=== PATIENT | male | born 1950 | race Caucasian/White ===

== ENCOUNTER → 2017-01-18 | Outpatient (REF) | payer MEDICARE, OTHER ==
[~2017-01-18] MED LIST: ASPIRIN EC
[2017-01-18 13:24] LABS: BASO % 0.6 % (0.0-1.0); EOS # 0.2 K/mm3 (0.0-0.50); EOS % 3.6 % (0.0-3.0); LARGE UNSTAINED CELL # 0.1 K/mm3 (0.0-0.4); LARGE UNSTAINED CELL % 1.8 % (0.0-4.0); LYMPH # 1.2 K/mm3 (1.5-4.5); LYMPH % 17.3 % (24.0-44.0); MEAN CORPUSCULAR HEMOGLOBIN 30.7 pg (27.0-33.0); MEAN CORPUSCULAR HGB CONC 33.6 g/dl (32.0-36.5); MEAN CORPUSCULAR VOLUME 91.4 fl (80.0-96.0); MONO # 0.4 K/mm3 (0.0-0.8); MONO % 6.2 % (0.0-5.0); NEUTROPHILS # 4.9 K/mm3 (1.8-7.7); NEUTROPHILS % 70.4 % (36.0-66.0); PLATELET COUNT, AUTOMATED 187 k/mm3 (150-450); RED CELL DISTRIBUTION WIDTH 13.3 % (11.5-14.5)
[2017-01-18 14:09] LABS: ALBUMIN 3.9 GM/DL (3.2-5.2); ALBUMIN/GLOBULIN RATIO 1.08 (1.00-1.93); BILIRUBIN,TOTAL 0.4 MG/DL (0.2-1.0); CALCIUM LEVEL 9.5 MG/DL (8.8-10.2); CREATININE FOR GFR 1.33 MG/DL (0.70-1.30); GLOMERULAR FILTRATION RATE 57.4 (>49); POTASSIUM SERUM 4.4 MEQ/L (3.5-5.1); TOTAL PROTEIN 7.5 GM/DL (6.4-8.2)
== END ==
LOC: M SFHCPLAZ 08:10
PROVIDERS: ATTEND Family Medicine
DX: E11.9 Type 2 diabetes mellitus without complications (principal); E78.2 Mixed hyperlipidemia

== ENCOUNTER → 2017-05-04 | Outpatient (CLI) | payer MEDICARE, OTHER ==
--- NOTE | 2017-05-04 11:01 | REP ---
PA and lateral chest: Comparisons are the portable chest dated 01/27/2015 and AP and lateral portable chest of 10/02/2005. There are sternotomy wires, unchanged from 01/27/2015, not present on 10/02/2005. There are no focal infiltrates. No pleural effusions. Cardiac size is normal. The yanelis, mediastinum, and bony thorax are unremarkable and unchanged. Impression: There are no acute cardiopulmonary findings. No focal infiltrate or effusion. Signed by Robles Schaefer MD 05/04/2017 10:52 A
== END ==
LOC: M WUC 10:35
PROVIDERS: ATTEND Family Medicine
DX: J06.9 Acute upper respiratory infection, unspecified (principal)
CPT/HCPCS: 36415; 71020; 80048; 85025; G0463

== ENCOUNTER → 2017-05-04 | Outpatient (REF) | payer MEDICARE, OTHER ==
[2017-05-04 11:29] LABS: BASO % 0.2 % (0.0-1.0); EOS % 0.1 % (0.0-3.0); LARGE UNSTAINED CELL # 0.1 K/mm3 (0.0-0.4); LARGE UNSTAINED CELL % 0.8 % (0.0-4.0); LYMPH # 0.7 K/mm3 (1.5-4.5); LYMPH % 6.9 % (24.0-44.0); MEAN CORPUSCULAR HEMOGLOBIN 31.9 pg (27.0-33.0); MEAN CORPUSCULAR HGB CONC 34.7 g/dl (32.0-36.5); MEAN CORPUSCULAR VOLUME 91.9 fl (80.0-96.0); MONO # 0.5 K/mm3 (0.0-0.8); MONO % 5.1 % (0.0-5.0); NEUTROPHILS # 7.8 K/mm3 (1.8-7.7); NEUTROPHILS % 86.9 % (36.0-66.0); PLATELET COUNT, AUTOMATED 154 k/mm3 (150-450)
[2017-05-04 11:36] LABS: CALCIUM LEVEL 8.9 MG/DL (8.8-10.2); CREATININE FOR GFR 1.47 MG/DL (0.70-1.30); GLOMERULAR FILTRATION RATE 51.2 (>49)
== END ==
LOC: M SFHCPLAZ 09:48
PROVIDERS: ATTEND Family Medicine
DX: J06.9 Acute upper respiratory infection, unspecified (principal)

== ENCOUNTER → 2017-05-16 | Outpatient (REF) | payer MEDICARE, OTHER ==
[2017-05-16 12:01] LABS: ALBUMIN 3.4 GM/DL (3.2-5.2); ALBUMIN/GLOBULIN RATIO 0.92 (1.00-1.93); ALKALINE PHOSPHATASE 53 U/L (45-117); ALT/SGPT 24 U/L (12-78); ANION GAP 7 MEQ/L (8-16); AST/SGOT 16 U/L (15-37); BILIRUBIN,TOTAL 0.4 MG/DL (0.2-1.0); BLOOD UREA NITROGEN 22 MG/DL (7-18); CALCIUM LEVEL 9.2 MG/DL (8.8-10.2); CARBON DIOXIDE LEVEL 27 MEQ/L (21-32); CHLORIDE LEVEL 105 MEQ/L (98-107); CREATININE FOR GFR 1.02 MG/DL (0.70-1.30); GLOMERULAR FILTRATION RATE > 60.0 (>49); GLUCOSE, FASTING 188 MG/DL (80-110); POTASSIUM SERUM 4.4 MEQ/L (3.5-5.1); SODIUM LEVEL 139 MEQ/L (136-145); TOTAL PROTEIN 7.1 GM/DL (6.4-8.2)
== END ==
LOC: M SFHCPLAZ 09:01
PROVIDERS: ATTEND Family Medicine
DX: N18.3 Chronic kidney disease, stage 3 (moderate) (principal); E11.8 Type 2 diabetes mellitus with unspecified complications; Z12.5 Encounter for screening for malignant neoplasm of prostate
CPT/HCPCS: 36415; 80053; 81001; 82043; 83036; 83970; 84681; G0103

== ENCOUNTER → 2017-06-19 | Outpatient (CLI) | payer MEDICARE, OTHER ==
[2017-06-19 09:18] LABS: ALBUMIN 3.5 GM/DL (3.2-5.2); ALBUMIN/GLOBULIN RATIO 1.03 (1.00-1.93); ALKALINE PHOSPHATASE 48 U/L (45-117); ALT/SGPT 21 U/L (12-78); ANION GAP 8 MEQ/L (8-16); AST/SGOT 15 U/L (15-37); BILIRUBIN,TOTAL 0.4 MG/DL (0.2-1.0); BLOOD UREA NITROGEN 16 MG/DL (7-18); CALCIUM LEVEL 8.8 MG/DL (8.8-10.2); CARBON DIOXIDE LEVEL 26 MEQ/L (21-32); CHLORIDE LEVEL 109 MEQ/L (98-107); CREATININE FOR GFR 0.93 MG/DL (0.70-1.30); GLOMERULAR FILTRATION RATE > 60.0 (>49); GLUCOSE, FASTING 179 MG/DL (80-110); POTASSIUM SERUM 4.2 MEQ/L (3.5-5.1); SODIUM LEVEL 143 MEQ/L (136-145); TOTAL PROTEIN 6.9 GM/DL (6.4-8.2)
[2017-06-19 10:47] LABS: MICROSCOPIC INDICATED? MAN YES (NO)
[2017-06-19 11:05] LABS: RBC, URINE NONE SEEN /hpf (0-3); WBC, URINE 0-1 /hpf (0-3)
[2017-06-19 11:06] LABS: BACTERIA, URINE NONE SEEN; HYALINE CAST, URINE NONE SEEN /lpf (0-1); MICROSCOPIC EXAM PERFORMED; SQUAMOUS EPITHELIAL CELL URINE NONE SEEN /hpf (SMALL AMT)
== END ==
LOC: M LAB 07:56
PROVIDERS: ATTEND Family Medicine
DX: N18.3 Chronic kidney disease, stage 3 (moderate) (principal); Z79.899 Other long term (current) drug therapy; Z12.5 Encounter for screening for malignant neoplasm of prostate
CPT/HCPCS: 36415; 80053; 81000; 82043; 82306; 83036; 83970; 84681; G0103

== ENCOUNTER → 2017-10-15 | Outpatient (CLI) | payer MEDICARE, OTHER ==
[2017-10-15 06:53] LABS: BASO # 0.1 10^3/uL (0.0-0.2); BASO % 0.7 % (0.0-1.0); EOS # 0.3 10^3/uL (0.0-0.50); EOS % 4.2 % (0.0-3.0); IMMATURE GRANULOCYTE % 0.3 % (0-0); LYMPH # 1.2 10^3/uL (1.5-4.5); LYMPH % 18.5 % (24.0-44.0); MEAN CORPUSCULAR HEMOGLOBIN 31.2 pg (27.0-33.0); MEAN CORPUSCULAR HGB CONC 34.3 g/dl (32.0-36.5); MEAN CORPUSCULAR VOLUME 90.8 fl (80.0-96.0); MONO # 0.6 10^3/uL (0.0-0.8); MONO % 8.5 % (0.0-5.0); NEUTROPHILS # 4.5 10^3/uL (1.8-7.7); NEUTROPHILS % 67.8 % (36.0-66.0); PLATELET COUNT, AUTOMATED 173 10^3/uL (150-450); RED CELL DISTRIBUTION WIDTH 12.6 % (11.5-14.5); WHITE BLOOD COUNT 6.7 10^3/uL (4.0-10.0)
[2017-10-15 07:26] LABS: ALBUMIN/GLOBULIN RATIO 1.08 (1.00-1.93); ALKALINE PHOSPHATASE 55 U/L (45-117); ALT/SGPT 26 U/L (12-78); ANION GAP 9 MEQ/L (8-16); AST/SGOT 18 U/L (7-37); BILIRUBIN,TOTAL 0.4 MG/DL (0.2-1.0); BLOOD UREA NITROGEN 16 MG/DL (7-18); CALCIUM LEVEL 9.3 MG/DL (8.8-10.2); CARBON DIOXIDE LEVEL 26 MEQ/L (21-32); CHLORIDE LEVEL 107 MEQ/L (98-107); CHOLESTEROL LEVEL 147 MG/DL (<200); CREATININE FOR GFR 1.01 MG/DL (0.70-1.30); FREE T4 0.78 NG/DL (0.76-1.46); GLOMERULAR FILTRATION RATE > 60.0 (>49); GLUCOSE, FASTING 173 MG/DL (80-110); POTASSIUM SERUM 4.5 MEQ/L (3.5-5.1); SODIUM LEVEL 142 MEQ/L (136-145); TOTAL PROTEIN 7.7 GM/DL (6.4-8.2); TRIGLYCERIDES LEVEL 244 MG/DL (<150)
== END ==
LOC: M LAB 06:33
PROVIDERS: ATTEND Family Medicine
DX: N18.3 Chronic kidney disease, stage 3 (moderate) (principal); E78.2 Mixed hyperlipidemia; E11.8 Type 2 diabetes mellitus with unspecified complications

== ENCOUNTER → 2018-03-01 | Outpatient (REF) | payer MEDICARE, OTHER ==
[2018-03-01 09:56] LABS: BASO % 0.4 % (0.0-1.0); EOS # 0.2 10^3/uL (0.0-0.50); EOS % 2.5 % (0.0-3.0); HEMATOCRIT 41.3 % (42.0-52.0); HEMOGLOBIN 14.5 g/dl (13.5-17.5); IMMATURE GRANULOCYTE % 0.3 % (0-3.0); LYMPH # 1.2 10^3/uL (1.5-4.5); LYMPH % 16.2 % (24.0-44.0); MEAN CORPUSCULAR HEMOGLOBIN 31.5 pg (27.0-33.0); MEAN CORPUSCULAR HGB CONC 35.1 g/dl (32.0-36.5); MEAN CORPUSCULAR VOLUME 89.6 fl (80.0-96.0); MONO # 0.6 10^3/uL (0.0-0.8); MONO % 8.4 % (0.0-5.0); NEUTROPHILS # 5.4 10^3/uL (1.8-7.7); NEUTROPHILS % 72.2 % (36.0-66.0); PLATELET COUNT, AUTOMATED 177 10^3/uL (150-450); RED BLOOD COUNT 4.61 10^6/uL (4.30-6.10); RED CELL DISTRIBUTION WIDTH 12.8 % (11.5-14.5); WHITE BLOOD COUNT 7.5 10^3/uL (4.0-10.0)
[2018-03-01 10:06] LABS: ALBUMIN 3.9 GM/DL (3.2-5.2); ALBUMIN/GLOBULIN RATIO 1.11 (1.00-1.93); ALKALINE PHOSPHATASE 56 U/L (45-117); ALT/SGPT 29 U/L (12-78); ANION GAP 6 MEQ/L (8-16); AST/SGOT 23 U/L (7-37); BILIRUBIN,TOTAL 0.4 MG/DL (0.2-1.0); BLOOD UREA NITROGEN 16 MG/DL (7-18); CALCIUM LEVEL 9.1 MG/DL (8.8-10.2); CARBON DIOXIDE LEVEL 29 MEQ/L (21-32); CHLORIDE LEVEL 103 MEQ/L (98-107); CREATININE FOR GFR 0.98 MG/DL (0.70-1.30); GLOMERULAR FILTRATION RATE > 60.0 (>49); GLUCOSE, FASTING 206 MG/DL (70-100); MAGNESIUM LEVEL 2.3 MG/DL (1.8-2.4); POTASSIUM SERUM 4.2 MEQ/L (3.5-5.1); SODIUM LEVEL 138 MEQ/L (136-145); TOTAL PROTEIN 7.4 GM/DL (6.4-8.2)
[2018-03-01 10:13] LABS: ESTIMATED AVERAGE GLUCOSE 183 MG/DL (60-110)
[2018-03-01 11:56] LABS: TOTAL 25(OH) VITAMIN D 18.3 NG/ML (30.0-100.0)
[2018-03-01 12:02] LABS: PTH INTACT 44.8 PG/ML (18.5-88.0)
== END ==
LOC: M SFHCPLAZ 07:56
DX: E55.9 Vitamin D deficiency, unspecified (principal); I10 Essential (primary) hypertension; E11.8 Type 2 diabetes mellitus with unspecified complications
CPT/HCPCS: 83735

== ENCOUNTER 2018-05-22 07:45 | Day surgery (SDC) | payer MEDICARE, OTHER ==
[2018-05-22] MEDS: NS 1,000 ML IV (08:00)
[2018-05-22] MEDS ORDERED: LIDOCAINE 2% INJ 100 MG/5 ML SDV (FOR ANES.) As Ordered (09:00)
[2018-05-22] MEDS ORDERED: PROPOFOL 200 MG/20 ML VIAL As Ordered ×2 (09:00→09:14)
== END 2018-05-22 09:46 | disposition home or self-care (01) ==
LOC: M OPP 07:45
DX: Z12.11 Encounter for screening for malignant neoplasm of colon (principal); K64.0 First degree hemorrhoids; K21.9 Gastro-esophageal reflux disease without esophagitis; I10 Essential (primary) hypertension; E78.00 Pure hypercholesterolemia, unspecified; E10.9 Type 1 diabetes mellitus without complications; I25.810 Atherosclerosis of coronary artery bypass graft(s) without angina pectoris; Z79.82 Long term (current) use of aspirin; Z79.84 Long term (current) use of oral hypoglycemic drugs; Z79.899 Other long term (current) drug therapy; I25.2 Old myocardial infarction; Z86.73 Personal history of transient ischemic attack (TIA), and cerebral infarction without residual deficits; Z98.890 Other specified postprocedural states
CPT/HCPCS: G0121

== ENCOUNTER → 2018-07-18 | Outpatient (REF) | payer MEDICARE, OTHER ==
[2018-07-18 14:35] LABS: APPEARANCE, URINE CLEAR (CLEAR); BACTERIA, URINE AUTO NEGATIVE (NEGATIVE); BILIRUBIN, URINE AUTO NEGATIVE (NEGATIVE); BLOOD, URINE BLOOD NEGATIVE (NEGATIVE); COLOR, URINE YELLOW (YELLOW); GLUCOSE, URINE (UA) AUTO 3+ mg/dL (NEGATIVE); KETONE, URINE AUTO NEGATIVE (NEGATIVE); LEUKOCYTE ESTERASE, URINE AUTO NEGATIVE (NEGATIVE); NITRITE, URINE AUTO NEGATIVE (NEGATIVE); PROTEIN, URINE AUTO NEGATIVE (NEGATIVE); RBC, URINE AUTO 0 /HPF (0-3); SPECIFIC GRAVITY URINE AUTO 1.023 (1.002-1.035); SQUAMOUS EPITHELIAL CELL UR AU 0 /HPF (0-6); UROBILINOGEN, URINE AUTO 0.2 mg/dL (0.0-2.0); WBC, URINE AUTO 2 /HPF (0-3)
[2018-07-18 15:06] LABS: MALB URINE SIEMENS 10.7 MG/L
[2018-07-18 15:11] LABS: ESTIMATED AVERAGE GLUCOSE 131 MG/DL (60-110); HEMOGLOBIN A1c 6.2 %
[2018-07-18 15:13] LABS: MAU/CREAT RATIO 10.2 MCG/MG (0.0-30.0)
[2018-07-18 15:14] LABS: C REACTIVE PROTEIN QUANTITATIV < 0.30 MG/DL (0.00-0.30); CHOLESTEROL LEVEL 107 MG/DL (<200); CHOLESTEROL RISK RATIO 3.689 (<5); CPK CREATINE PHOSPHOKINASE 128 U/L (39-308); FREE T4 0.79 NG/DL (0.76-1.46); HDL CHOLESTEROL 29 MG/DL (>40); LDL CHOLESTEROL 39 MG/DL (<100); NON-HDL-C 78 MG/DL; PSA SCREENING 1.21 NG/ML (< 4.0); TRIGLYCERIDES LEVEL 196 MG/DL (<150)
== END ==
LOC: M SFHCPLAZ 08:27
DX: E11.8 Type 2 diabetes mellitus with unspecified complications (principal); Z12.5 Encounter for screening for malignant neoplasm of prostate; E53.8 Deficiency of other specified B group vitamins
CPT/HCPCS: 82550

== ENCOUNTER → 2019-01-06 | Outpatient (REF) | payer MEDICARE, OTHER ==
[~2019-01-06] MED LIST changes: +ASPI1TAB PO; +ASPI325T25 PO; +CARV12.5 PO; +CHLO125TA PO; +CLOP75TA2 PO; +COQ1200C2 PO; +FAMO1TAB25 PO; +INVO300T PO; +JANU100T PO; +LISI-538 PO; +METF850T4 PO; +PRESCAP6 PO; +ROSU40TA3 PO; +SYST1SOL OU; +TRUL0.5I SC; +VITA500T PO
[2019-01-06 12:25] LABS: BASO % 0.6 % (0.0-1.0); EOS # 0.3 10^3/uL (0.0-0.50); EOS % 3.7 % (0.0-3.0); HEMATOCRIT 43.4 % (42.0-52.0); HEMOGLOBIN 14.7 g/dl (13.5-17.5); LYMPH # 1.4 10^3/uL (1.5-4.5); LYMPH % 19.3 % (24.0-44.0); MEAN CORPUSCULAR HEMOGLOBIN 30.9 pg (27.0-33.0); MEAN CORPUSCULAR HGB CONC 33.9 g/dl (32.0-36.5); MEAN CORPUSCULAR VOLUME 91.4 fl (80.0-96.0); MONO # 0.6 10^3/uL (0.0-0.8); MONO % 8.1 % (0.0-5.0); NEUTROPHILS # 4.8 10^3/uL (1.8-7.7); PLATELET COUNT, AUTOMATED 192 10^3/uL (150-450); RED BLOOD COUNT 4.75 10^6/uL (4.30-6.10)
[2019-01-06 12:42] LABS: HEMOGLOBIN A1c 6.9 %
[2019-01-06 13:02] LABS: ALBUMIN 4.3 GM/DL (3.2-5.2); ALT/SGPT 20 U/L (12-78); BILIRUBIN,TOTAL 0.4 MG/DL (0.2-1.0); BLOOD UREA NITROGEN 30 MG/DL (7-18); CALCIUM LEVEL 9.6 MG/DL (8.8-10.2); CARBON DIOXIDE LEVEL 27 MEQ/L (21-32); CHLORIDE LEVEL 105 MEQ/L (98-107); CREATININE FOR GFR 1.19 MG/DL (0.70-1.30); GLOMERULAR FILTRATION RATE > 60.0 (>49); GLUCOSE, FASTING 104 MG/DL (70-100); POTASSIUM SERUM 4.4 MEQ/L (3.5-5.1); PTH INTACT 24.9 PG/ML (18.5-88.0); SODIUM LEVEL 141 MEQ/L (136-145); TOTAL PROTEIN 7.8 GM/DL (6.4-8.2)
== END ==
LOC: M SFHCPLAZ 08:05
PROVIDERS: ATTEND Family Medicine
DX: N18.3 Chronic kidney disease, stage 3 (moderate) (principal); E55.9 Vitamin D deficiency, unspecified; E11.8 Type 2 diabetes mellitus with unspecified complications

== ENCOUNTER → 2019-05-27 | Outpatient (REF) | payer MEDICARE, OTHER ==
[~2019-05-27] MED LIST changes: +ASPI-255 PO; -ASPI1TAB PO; -ASPI325T25 PO; +ASPI81TA26 PO; -ROSU40TA3 PO; +ROSU40TA4 PO
[2019-05-27 10:21] LABS: BASO % 0.4 % (0.0-1.0); EOS # 0.2 10^3/uL (0.0-0.50); EOS % 3.2 % (0.0-3.0); HEMATOCRIT 44.6 % (42.0-52.0); HEMOGLOBIN 14.9 g/dl (13.5-17.5); LYMPH # 1.1 10^3/uL (1.5-4.5); LYMPH % 15.5 % (24.0-44.0); MEAN CORPUSCULAR HEMOGLOBIN 30.8 pg (27.0-33.0); MEAN CORPUSCULAR HGB CONC 33.4 g/dl (32.0-36.5); MEAN CORPUSCULAR VOLUME 92.3 fl (80.0-96.0); MONO # 0.6 10^3/uL (0.0-0.8); MONO % 7.7 % (0.0-5.0); NEUTROPHILS # 5.3 10^3/uL (1.8-7.7); NEUTROPHILS % 72.9 % (36.0-66.0); PLATELET COUNT, AUTOMATED 174 10^3/uL (150-450); RED BLOOD COUNT 4.83 10^6/uL (4.30-6.10); WHITE BLOOD COUNT 7.3 10^3/uL (4.0-10.0)
[2019-05-27 10:27] LABS: ALBUMIN 4.1 GM/DL (3.2-5.2); BILIRUBIN,TOTAL 0.3 MG/DL (0.2-1.0); CALCIUM LEVEL 9.7 MG/DL (8.8-10.2); CREATININE FOR GFR 1.41 MG/DL (0.70-1.30); GLOMERULAR FILTRATION RATE 53.2 (>49); POTASSIUM SERUM 4.4 MEQ/L (3.5-5.1); TOTAL PROTEIN 7.6 GM/DL (6.4-8.2)
[2019-05-27 10:33] LABS: TOTAL 25(OH) VITAMIN D 34.6 NG/ML (30.0-100.0)
[2019-05-27 10:34] LABS: PTH INTACT 28.5 PG/ML (18.5-88.0)
[2019-05-27 10:39] LABS: HEMOGLOBIN A1c 7.8 %
== END ==
LOC: M SFHCPLAZ 08:00
PROVIDERS: ATTEND Family Medicine
DX: E53.8 Deficiency of other specified B group vitamins (principal); N18.3 Chronic kidney disease, stage 3 (moderate); E11.8 Type 2 diabetes mellitus with unspecified complications; Z12.5 Encounter for screening for malignant neoplasm of prostate; E55.9 Vitamin D deficiency, unspecified
CPT/HCPCS: 36415; 80053; 80061; 82306; 82607; 83036; 83970; 85025; 85046; G0103

== ENCOUNTER → 2019-06-24 | Outpatient (CLI) | payer MEDICARE, OTHER ==
--- NOTE | 2019-06-24 11:25 | REP ---
RENAL ULTRASOUND WITH DUPLEX DOPPLER RENAL ARTERY EVALUATION: Real-time sonographic evaluation of the kidneys performed. Kidneys are normal in size and echotexture, right kidney measuring 12.8 x 5.6 x 5.3 cm and left kidney 13.5 x 5.4 x 6.2 cm. There is no hydronephrosis bilaterally. Two cysts are seen in the lower pole of the left kidney, both measuring 2.6 cm in maximum diameter. Urinary bladder is mildly distended and grossly unremarkable. Real-time ultrasound evaluation and duplex Doppler interrogation of renal arteries is performed bilaterally. Peak systolic velocity of the abdominal aorta at the level of the renal artery is 84.8 cm/s. Peak systolic velocity of the main right renal artery is 98.2 cm/s, renal to aortic ratio 1.2. Resistive indices are measured in the upper, middle, and lower thirds of the right kidney and range between 0.58 and 0.66. Acceleration times range between 0.033 and 0.042. Peak systolic velocity of the main left renal artery is 118.4 cm/s, renal to aortic ratio 1.4. Resistive indices left kidney range between 0.55 and 0.61. Acceleration times range between 0.036 and 0.052. IMPRESSION: No compelling duplex Doppler sonographic evidence of significant renal artery stenosis bilaterally. Left renal cysts. Electronically Signed by Robles Clements MD 06/25/2019 09:34 A
== END ==
LOC: M RAD 08:26
PROVIDERS: ATTEND Family Medicine
DX: N18.3 Chronic kidney disease, stage 3 (moderate) (principal); N28.1 Cyst of kidney, acquired; I12.9 Hypertensive chronic kidney disease with stage 1 through stage 4 chronic kidney disease, or unspecified chronic kidney disease

== ENCOUNTER → 2019-09-29 | Outpatient (REF) | payer MEDICARE, OTHER ==
[2019-09-29 10:55] LABS: APPEARANCE, URINE CLEAR (CLEAR); BACTERIA, URINE AUTO NEGATIVE (NEGATIVE); BILIRUBIN, URINE AUTO NEGATIVE (NEGATIVE); BLOOD, URINE BLOOD NEGATIVE (NEGATIVE); COLOR, URINE YELLOW (YELLOW); GLUCOSE, URINE (UA) AUTO 3+ mg/dL (NEGATIVE); KETONE, URINE AUTO NEGATIVE (NEGATIVE); LEUKOCYTE ESTERASE, URINE AUTO NEGATIVE (NEGATIVE); NITRITE, URINE AUTO NEGATIVE (NEGATIVE); PROTEIN, URINE AUTO NEGATIVE (NEGATIVE); RBC, URINE AUTO 3 /HPF (0-3); SPECIFIC GRAVITY URINE AUTO 1.029 (1.002-1.035); SQUAMOUS EPITHELIAL CELL UR AU 1 /HPF (0-6); UROBILINOGEN, URINE AUTO 0.2 mg/dL (0.0-2.0); WBC, URINE AUTO 1 /HPF (0-3)
[2019-09-29 11:11] LABS: HEMOGLOBIN A1c 7.4 %
[2019-09-29 11:30] LABS: ALBUMIN 3.9 GM/DL (3.2-5.2); ALT/SGPT 24 U/L (12-78); BILIRUBIN,TOTAL 0.3 MG/DL (0.2-1.0); BLOOD UREA NITROGEN 16 MG/DL (7-18); CALCIUM LEVEL 9.9 MG/DL (8.8-10.2); CARBON DIOXIDE LEVEL 29 MEQ/L (21-32); CHLORIDE LEVEL 109 MEQ/L (98-107); CREATININE FOR GFR 1.02 MG/DL (0.70-1.30); GLOMERULAR FILTRATION RATE > 60.0 (>49); GLUCOSE, FASTING 156 MG/DL (70-100); POTASSIUM SERUM 4.3 MEQ/L (3.5-5.1); SODIUM LEVEL 144 MEQ/L (136-145); TOTAL PROTEIN 7.2 GM/DL (6.4-8.2)
[2019-09-29 11:41] LABS: CREATININE, URINE 79.2 MG/DL; MAU/CREAT RATIO 23.9 MCG/MG (0.0-30.0)
== END ==
LOC: M SFHCPLAZ 08:03
PROVIDERS: ATTEND Family Medicine
DX: N18.3 Chronic kidney disease, stage 3 (moderate) (principal); E78.2 Mixed hyperlipidemia; E11.8 Type 2 diabetes mellitus with unspecified complications; Z23 Encounter for immunization
CPT/HCPCS: 36415; 80053; 81001; 82043; 83036; 84439; 84443; 90682; G0008

== ENCOUNTER → 2020-07-05 | Outpatient (CLI) | payer MEDICARE, OTHER ==
[~2020-07-05] MED LIST changes: +VITA-243 PO; -VITA500T PO
[2020-07-05 13:42] LABS: ALBUMIN 4.1 GM/DL (3.2-5.2); ALT/SGPT 25 U/L (12-78); BILIRUBIN,TOTAL 0.5 MG/DL (0.2-1.0); BLOOD UREA NITROGEN 17 MG/DL (7-18); CALCIUM LEVEL 9.4 MG/DL (8.8-10.2); CARBON DIOXIDE LEVEL 30 MEQ/L (21-32); CHLORIDE LEVEL 106 MEQ/L (98-107); CHOLESTEROL LEVEL 122 MG/DL (<200); CHOLESTEROL RISK RATIO 4.357 (<5); CREATININE FOR GFR 1.26 MG/DL (0.70-1.30); GLOMERULAR FILTRATION RATE > 60.0 (>49); GLUCOSE, FASTING 194 MG/DL (70-100); HDL CHOLESTEROL 28 MG/DL (>40); LDL CHOLESTEROL 41 MG/DL (<100); MAGNESIUM LEVEL 2.5 MG/DL (1.8-2.4); NON-HDL-C 94 MG/DL; POTASSIUM SERUM 4.8 MEQ/L (3.5-5.1); SODIUM LEVEL 138 MEQ/L (136-145); TOTAL PROTEIN 7.6 GM/DL (6.4-8.2); TRIGLYCERIDES LEVEL 263 MG/DL (<150)
[2020-07-05 13:47] LABS: MALB URINE SIEMENS 45.6 MG/L
[2020-07-05 16:15] LABS: HEMOGLOBIN A1c 9.3 %
== END ==
LOC: M PLALAB 08:15
PROVIDERS: ATTEND Nurse Practitioner Family
DX: N18.3 Chronic kidney disease, stage 3 (moderate) (principal); I12.9 Hypertensive chronic kidney disease with stage 1 through stage 4 chronic kidney disease, or unspecified chronic kidney disease; E78.2 Mixed hyperlipidemia; Z12.5 Encounter for screening for malignant neoplasm of prostate; E55.9 Vitamin D deficiency, unspecified; E11.22 Type 2 diabetes mellitus with diabetic chronic kidney disease
CPT/HCPCS: 36415; 80053; 80061; 82043; 82306; 83036; 83735; 84439; 84443; G0103

== ENCOUNTER → 2020-12-06 | Outpatient (REF) | payer MEDICARE, OTHER ==
[2020-12-06 12:22] LABS: MALB URINE SIEMENS 22.3 MG/L; MAU/CREAT RATIO 15.1 MCG/MG (0.0-30.0)
[2020-12-06 12:25] LABS: ALBUMIN 4.2 GM/DL (3.2-5.2); BILIRUBIN,TOTAL 0.3 MG/DL (0.2-1.0); CALCIUM LEVEL 10.2 MG/DL (8.8-10.2); CHOLESTEROL RISK RATIO 4.833 (<5); CREATININE FOR GFR 1.27 MG/DL (0.70-1.30); FREE T4 0.74 NG/DL (0.76-1.46); GLOMERULAR FILTRATION RATE 59.9 (>49); MAGNESIUM LEVEL 2.4 MG/DL (1.8-2.4); POTASSIUM SERUM 5.1 MEQ/L (3.5-5.1); THYROID STIMULATING HORMONE 2.38 uIU/ML (0.358-3.740); TOTAL PROTEIN 7.7 GM/DL (6.4-8.2)
[2020-12-06 14:02] LABS: TOTAL 25(OH) VITAMIN D 35.9 NG/ML (30.0-100.0)
[2020-12-06 16:55] LABS: HEMOGLOBIN A1c 7.2 %
== END ==
LOC: M PLALAB 08:09
PROVIDERS: ATTEND Family Medicine
DX: N18.30 Chronic kidney disease, stage 3 unspecified (principal); E78.2 Mixed hyperlipidemia; E11.8 Type 2 diabetes mellitus with unspecified complications; I10 Essential (primary) hypertension; Z12.5 Encounter for screening for malignant neoplasm of prostate; E55.9 Vitamin D deficiency, unspecified
CPT/HCPCS: 36415; 80053; 80061; 82043; 82306; 83036; 83735; 84439; 84443; G0103

== ENCOUNTER → 2021-03-24 | Outpatient (REF) | payer MEDICARE, OTHER ==
[~2021-03-24] MED LIST changes: -LISI-538 PO; +LISI20TA33 PO
[2021-03-24 10:42] LABS: BASO % 0.4 % (0.0-1.0); EOS # 0.3 10^3/uL (0.0-0.5); EOS % 4.1 % (0.0-3.0); HEMATOCRIT 45.3 % (42.0-52.0); HEMOGLOBIN 14.9 g/dl (13.5-17.5); LYMPH # 1.2 10^3/uL (1.5-5.0); LYMPH % 16.1 % (24.0-44.0); MEAN CORPUSCULAR HEMOGLOBIN 30.8 pg (27.0-33.0); MEAN CORPUSCULAR HGB CONC 32.9 g/dl (32.0-36.5); MEAN CORPUSCULAR VOLUME 93.8 fl (80.0-96.0); MONO # 0.6 10^3/uL (0.0-0.8); MONO % 7.8 % (2.0-8.0); NEUTROPHILS # 5.1 10^3/uL (1.5-8.5); NEUTROPHILS % 71.3 % (36.0-66.0); PLATELET COUNT, AUTOMATED 193 10^3/uL (150-450); RED BLOOD COUNT 4.83 10^6/uL (4.30-6.10); WHITE BLOOD COUNT 7.2 10^3/uL (4.0-10.0)
[2021-03-24 10:55] LABS: HEMOGLOBIN A1c 6.9 %
[2021-03-24 11:14] LABS: ALBUMIN 4.3 GM/DL (3.2-5.2); ALT/SGPT 23 U/L (12-78); BILIRUBIN,TOTAL 0.5 MG/DL (0.2-1.0); BLOOD UREA NITROGEN 17 MG/DL (7-18); CALCIUM LEVEL 9.3 MG/DL (8.8-10.2); CARBON DIOXIDE LEVEL 27 MEQ/L (21-32); CHLORIDE LEVEL 109 MEQ/L (98-107); CREATININE FOR GFR 1.06 MG/DL (0.70-1.30); FERRITIN 73 NG/ML (26-388); GLOMERULAR FILTRATION RATE > 60.0 (>49); GLUCOSE, FASTING 133 MG/DL (70-100); POTASSIUM SERUM 4.3 MEQ/L (3.5-5.1); SODIUM LEVEL 142 MEQ/L (136-145); TOTAL PROTEIN 7.6 GM/DL (6.4-8.2)
[2021-03-24 13:34] LABS: TOTAL 25(OH) VITAMIN D 42.3 NG/ML (30.0-100.0)
[2021-03-24 13:35] LABS: PTH INTACT 26.3 PG/ML (18.5-88.0)
[2021-03-24 13:36] LABS: VITAMIN B12 LEVEL 886 PG/ML (247-911)
== END ==
LOC: M PLALAB 07:59
PROVIDERS: ATTEND Family Medicine
DX: N18.30 Chronic kidney disease, stage 3 unspecified (principal); E53.8 Deficiency of other specified B group vitamins; E11.8 Type 2 diabetes mellitus with unspecified complications; E55.9 Vitamin D deficiency, unspecified; I12.9 Hypertensive chronic kidney disease with stage 1 through stage 4 chronic kidney disease, or unspecified chronic kidney disease

== ENCOUNTER → 2021-08-22 | Outpatient (CLI) | payer MEDICARE, OTHER ==
[~2021-08-22] MED LIST changes: +AREDS 2 PO; +B-12100010 PO; +CO Q200C10 PO; +D 50CAP3 PO; +FAMO10TA50 PO; -FAMO1TAB25 PO; +GLIM2TAB29 PO
[2021-08-22 10:32] LABS: BASO % 0.6 % (0.0-1.0); EOS # 0.2 10^3/uL (0.0-0.5); EOS % 2.8 % (0.0-3.0); HEMOGLOBIN 15.1 g/dl (13.5-17.5); LYMPH # 1.2 10^3/uL (1.5-5.0); LYMPH % 17.3 % (24.0-44.0); MEAN CORPUSCULAR HEMOGLOBIN 30.9 pg (27.0-33.0); MEAN CORPUSCULAR HGB CONC 33.6 g/dl (32.0-36.5); MONO # 0.5 10^3/uL (0.0-0.8); MONO % 7.8 % (2.0-8.0); NEUTROPHILS # 4.9 10^3/uL (1.5-8.5); NEUTROPHILS % 70.9 % (36.0-66.0); PLATELET COUNT, AUTOMATED 180 10^3/uL (150-450); RED BLOOD COUNT 4.89 10^6/uL (4.30-6.10); WHITE BLOOD COUNT 6.8 10^3/uL (4.0-10.0)
[2021-08-22 11:05] LABS: C REACTIVE PROTEIN QUANTITATIV < 0.30 MG/DL (0.00-0.30); CHOLESTEROL LEVEL 121 MG/DL (<200); CHOLESTEROL RISK RATIO 4.321 (<5); CPK CREATINE PHOSPHOKINASE 134 U/L (39-308); HDL CHOLESTEROL 28 MG/DL (>40); LDL CHOLESTEROL 44 MG/DL (<100); NON-HDL-C 93 MG/DL; TOTAL PROTEIN 7.6 GM/DL (6.4-8.2); TRIGLYCERIDES LEVEL 245 MG/DL (<150)
[2021-08-22 11:31] LABS: HEMOGLOBIN A1c 6.6 %
[2021-08-23 11:06] LABS: ALBUMIN 4.61 GM/DL (3.29-5.55); ALBUMIN % 60.7 % (55.8-66.1); ALPHA-1-GLOBULIN % 3.7 % (2.9-4.9); ALPHA-1-GLOBULINS 0.28 GM/DL (0.17-0.41); ALPHA-2-GLOBULINS 0.86 GM/DL (0.42-0.99); ALPHA-2-GLOBULINS % 11.3 % (7.1-11.8); BETA-1-GLOBULINS % 6.6 % (4.7-7.2); BETA-2-GLOBULINS % 6.6 % (3.2-6.5); GAMMA GLOBULIN % 11.1 % (11.1-18.8); GAMMA GLOBULINS 0.84 GM/DL (0.65-1.58)
[2021-08-23 11:12] LABS: IMMUNOTYPING SERUM IGM ABNORMAL (NORMAL); IMMUNOTYPING SERUM LAMBDA ABNORMAL (NORMAL)
== END ==
LOC: M PLALAB 08:03
PROVIDERS: ATTEND Family Medicine
DX: Z12.5 Encounter for screening for malignant neoplasm of prostate (principal); E53.8 Deficiency of other specified B group vitamins; E11.8 Type 2 diabetes mellitus with unspecified complications
CPT/HCPCS: 36415; 80061; 82550; 83036; 84165; 85025; 86140; 86335; G0103

== ENCOUNTER → 2021-08-27 | Outpatient (CLI) | payer MEDICARE, OTHER | LOC: M LABSMTC 10:36 | PROVIDERS: ATTEND Anesthesiology | DX: Z01.812 Encounter for preprocedural laboratory examination (principal); Z20.822 Contact with and (suspected) exposure to COVID-19 ==

== ENCOUNTER 2021-09-01 06:29 | Day surgery (SDC) | payer MEDICARE, OTHER ==
[~2021-09-01] VITALS: Ht 182.9 cm; Wt 107.0 kg
[~2021-09-01 06:29] MED LIST changes: +CYCLOPENTOLATE 1% OPHTH SOLN 2 ML BTL OD SCH; +FLURBIPROFEN 0.03% OPHTH SOLN 2.5 ML OD SCH; +PHENYLEPHRINE 2.5% OPHTH SOL 2ML OD SCH; +PHENYLEPHRINE HCL 10 % OPHTH. SOL 5ML OD ONE; +TETRACAINE 0.5% OPHTH SOLN 4ML OD SCH
--- OUTSIDE RECORDS SUMMARY | 2021-09-01 06:34 | CCD ---
Author Author [facility] Organization [facility] Address Unknown Phone Unavailable Care Team Providers Care Solution Developer Name Role Phone Dylon Gibson Unavailable PROBLEMS Type Condition ICD9-CM Code UZL71-DF Code Onset Dates Condition S tatus W/U Status Risk SNOMED Code Notes Problem CAD (coronary artery disease) I25.10 Active confirm ed 37107455 Problem Carotid artery disease I77.9 Active confirmed 617230686 Problem Prostate cancer screening Z12.5 Active confirmed 517779660 Problem CKD (chronic kidney disease) stage 3, GFR 30-59 ml/min N18.3 Active confirmed 816608493 Problem Diabetes mellitus type 2 with complications E11.8 Active confirmed 170853830 Problem Gastroesophageal reflux disease with esophagitis K 21.0 Active confirmed 193868996 Problem Mixed hyperlipidemia E78.2 Active confirmed 876501209 Problem 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 Active confirmed 222401044 Problem Essential (primary) hypertension I10 Active conf irmed 48790128 Problem Vitamin D deficiency E55.9 Active confirmed 68726544 Problem B12 deficiency E53.8 Active confirmed 07443 4004 Problem Obesity E66.9 Active confirmed 106070711 Problem Colon cancer screening Z12.11 Active confirmed 050872431 ALLERGIES Allergen (clinical drug ingredient) Drug/Non Drug Allergy do cumented on EMR Reaction Allergy Type Onset Date Status cefuroxime Ceftin Rash Drug Allergy Active ENCOUNTERS from 1950 to 2021-08-26 Encounter Location Date Provider Diagnosis [facility] [address] [facility] [phone] [place] [address] Aug, Dylon Arthur Preoperative clearance Z01.8 18 ; 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 ; Diabetes mellitus type 2 with complications E11.8 ; Essential (primary) hypertension I10 ; B12 deficiency E53.8 ; Mixed hyperlipidemia E78.2 ; CAD (coronary artery disease) I25.10 ; Colon cancer screening Z12.11 ; Carotid artery disease I77.9 ; Prostate cancer screening Z12.5 ; Vitamin D deficiency E55.9 ; Obesity E66.9 ; Gastroesophageal reflux disease with esophagitis K21.0 and CKD (chronic kidney disease) stage 3, GFR 30- 59 ml/min N18.3 IMMUNIZATIONS Vaccine Route Administration Date Status COVID-19 dose #1 given elsewhere Unspecified IM Intramuscular Ja 2020 Administered Influenza 18 yrs & older Flublok IM Intramuscular Sep 29, 2019 Administered Influenza (High Dose 65 & up) IM Intramuscular Oct 25, 2017 A dministered Influenza (High Dose 65 & up) IM Intramuscular Sep 21, 2016 A dministered Pneumococcal 0.5mL Prevnar 13 IM Intramuscular Jul 25, 2018 A dministered Influenza 6mo & up Fluzone IM Intramuscular Sep 10, 2015 Admi nistered Influenza 6mo & up Fluzone IM Intramuscular Sep 10, 2014 Admi nistered Influenza 6mo & up Fluzone IM Intramuscular Aug 22, 2013 Admi nistered SOCIAL HISTORY Tobacco Use: Social History Observation Description Date Details (start date - stop date) Former Smoker Sex Assigned At : Social History Observation Description Sex Assigned At Unknown Audit Question Answer Notes Total Score: 3 Interpretation: Alcohol Education Language: Question Answer Notes Languages spoken: Italian Sikh: Question Answer Notes Sikh 21 Druze Sexual Hx: Question Answer Notes Had sex in the last 12 months (vaginal, oral, or anal)? Yes Have you ever had an STD? No with Women only Use protection? No Drug and Alcohol Question Answer Notes Total Score: 0 Interpretation: No problems reported Alcohol Screening: Question Answer Notes Did you have a drink containing alcohol in the past year? Ye s Points 4 Interpretation Positive How often did you have six or more drinks on one occas ion in the past year? Less than monthly (1 point) How many drinks did you have on a typica l day when you were drinking in the past year? 3 or 4 (1 point) How often did you have a drink containing alcohol in t he past year? Two to four times a month (2 points) BMI Care Goal Follow-Up Question Answer Notes Above Normal BMI Follow-Up Giving encouragement to exercise Tobacco Use: Question Answer Notes Are you a: former smoker How long has it been since you last smoked? > 10 years REASON FOR REFERRAL No Information VITAL SIGNS Weight 240.4 lbs Aug, Weight-kg 109.04 kg Aug, Height 72 in Aug, BMI 32.60 kg/m2 Aug, Heart Rate 67 /min Aug, Respiratory Rate 20 /min Aug, Temperature 97.0 degrees Fahrenheit Aug, Oximetry 95% Aug, Blood pressure systolic 128 mm Hg Aug, Blood pressure diastolic 78 mm Hg Aug, MEDICATIONS Medication SIG (Take, Route, Frequency, Duration) Notes Start Da te End Date Status Lisinopril 20 MG 1 tablet Orally bid for 90 Active Glucophage 850 MG 1 tablet with meals Orally 3 times a day for 90 day (s) Active Vitamin D (Cholecalciferol) 5000 UNIT 1 tab Orally Once a day Active Blood Glucose Test - as directed subcutaneously bid DX: E11.8 fo r 30 day(s) Jul, Active Trulicity 4.5 MG/0.5ML 4.5 gm Subcutaneous weekly for 90 day(s) Active Glimepiride 1 MG 1 tab Orally AC bid for 90 day(s) Active Lisinopril 20 MG 1 tablet Orally bid for 90 day(s) Active One touch ultra blue as directed subcutaneously bid for 90 day(s ) Apr, Active Aspirin 325 MG 1 tablet Orally Once a day Active Invokana 300 MG 1 tablet Orally every morning for 90 day(s) Active Ascorbic Acid 500 mg 1 capsule Orally Once a day Active AREDS OTC Active Rosuvastatin Calcium 40 MG 1 tablet Orally Once a day for 90 day(s) Active Rosuvastatin Calcium 40 MG 1 tablet Orally Once a day for 90 Active Famotidine 10 mg 1 tablet as needed Orally Once a day Active CoQ10 200 MG 1 capsule with a meal Orally Once a day for 30 day(s) Active Systane 0.4-0.3 % 1 drop into affected eye Ophthalmic Three times a d ay Active Carvedilol 12.5mg 1 tablet orally Twice a day for 90 day(s) Active Glucophage 850 MG TAKE ONE TABLET BY MOUTH THREE TIMES A D AY WITH MEALS for 90 Active Clopidogrel Bisulfate 75 MG 1 tablet Orally Once a day for 90 day(s) Active Cyanocobalamin 1000 MCG 1 tablet Orally Once a day for 90 day(s) Active Clopidogrel Bisulfate 75 MG 1 tablet Orally Once a day for 90 Active PROCEDURES No Information RESULTS No Results REASON FOR VISIT Preo p clearance for right cataract- [facility]-09/01/21- Sue-Fan, Nan @ fax # [phone] DX: H25.11 MEDICAL (GENERAL) HISTORY Type Description Date Medical History CAD status post non-Q wave M I April 2010, status post CABG x 4 04/2010-Dr. Acevedo TST-no reversibility, mild increased risk-[place] Medical History right occipital CVA, small b ilateral CVAs to right posterior frontal and left posterior frontal areas April 2010 Medical History T2DM c nephropathy Medical History obesity Medical History history of nicotine addition Medical History carotid artery disease statu s post left CEA with chronic CCA and SONIA occlusion-follows with Dr. Bolaños Medical History right lower extremity paresthesia-? 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 Medical History ho atrial fibrillation, postoperative CA BG Medical History glaucoma-OU Medical History CHF, chronic 2 diastolic/sys tolic dysfunction-10/2017 TTE akinesis basal/inf/lateral regions, LVEF 45%, grade 1 diastolic dysfunction, LAE 52, trace MR-Antecol Medical History CKD, stage IIIa Medical History MGUS/IgM lambda Surgical History duuariurhes-kjsqnbdkmpsuys-Ilepumwnr 07/07 007, 05/2018 Hospitalization History none Goals Section No Information Health Concerns No Information MEDICAL EQUIPMENT No Information MENTAL STATUS No Information FUNCTIONAL STATUS No Information ASSESSMENTS Encounter Date Diagnosis Assessment Notes Treatment Notes Treatm ent Clinical Notes Aug, Preoperative clearance (ICD-10 - Z01.818) On 03/24/21 the patient had a stable CBCD and CMP. On 08/26/21 the patient's EKG revealed normal sinsu bradycardia at 55 beats per minute c iRBBB/LAFB, no hypertrophy and lateral repolarization abnormality similar to 09/10/20 EKG. On the AM of the surgery, the patient will take carvedilol and lisinopril with a sip of water. The patient is currently medically optimized for the above surgery. By the modified RCRI, the patient's 30 day MACE risk is 4%. The patient wishes to assume this risk and proceed with the above surgery. Aug, MGUS (monoclonal gammopathy of unknown significance) (ICD-10 - D47.2) Patient without CRAB (08/22/21 sIFE IgM lambda) 08/22/21 stable at 15.1, 92 08/22/21 SPEP 0.22 Aug, Diabetes mellitus type 2 with complications (ICD -10 - E11.8) C: wean off glim, basal insulin 08/22/21 6.6; ergo, dulag 3 to 4.5 and glim 2 to 1 given FBG 90-110 s hypos 03/24/21 6.9; ergo, dualg 1.5 to 3 12/06/20 7.3 07/05/20 9.3; therefore, + glim 2 BID 05/2019 7.8; therefore restart ADA diet and cb AC br 01/2019 6.9 07/2018 6.2 and 16# and but AC br HBGs 140-160s; therefore, gave new VF to cb 02/2018 8.0; therefore, restarted Invokana 300 qAM (given now feel it WAS helping-AC BG high 100s despite increased exercise, decreased weight and jagruti to dulag switch) 10/2017 7.2; therefore, therefore, held Invokana and Januvia 100 and started Trulicity 1.5 qW 06/2017 7.3 c intact C-peptide 4.2 c FBS 179; therefore, restarted Invokana 300 qAM s improvement 01/2017 9.5; therefore, started Invokana 300 qAM and strict diet c AC breakfast ~130s 12/06/20 15 07/2018 10 06/2017 20 01/2012 YOSEPH/creatinine 4 Aug, Essential (primary) hypertension (ICD-10 - I10) Stable on lisin 20 BID, carve 12.5 BID C: readd + CTD 12/06/20 20/1.3, 5.1, 2.4 05/2019 33/1.4, 4.4; therefore, held CTD as per HTN and renal US 01/2019 30/1.2, 4.4 02/2018 16/1.0, 4.2, 2.3 06/2017 16/0.9, 4.2-off both CTD 12.5 and Invokana 300 qAM 04/2017 up to 33/1.5, 4.0 c URI c dehydration-CTD 12.5 and Invokana 300 held by SS Aug, B12 deficiency (ICD-10 - E53.8) 03/24/21 14.9, 94, mireille 73 05/2019 14.9, r38/1.3 01/2019 14.7, 91, r35, 2.0 10/2017 15.9, 81 01/2012 14.6 03/2011 hemoglobin stable at 15.0 03/24/21 886 05/2019 1136 07/2018 865 on 1000 01/2017 B12 1148 Aug, Mixed hyperlipidemia (ICD-10 - E78.2) 08/22/21 44/28/245, 134, <0.3 05/2019 48/32/238 07/2018 39/29/196, 128, <0.3 on rosuva 40 10/2017 64/34/244, 129, <0.3 05/2016 55/33/262, CPK 186 12/06/20 2.4, 0.7 07/2018 1.6, 0.8 10/2017 1.9, 0.8 09/2016 1.9, FT4 0.8, TPO Ab - 05/2016 2.7 05/2015 1.5 08/2011 TSH 1.0 Aug, CAD (coronary artery disease) (ICD-10 - I25.10) No recurrent symptoms Aug, Colon cancer screening (ICD-10 - Z12.11) repeat EGD/colon 05/2023-W (given FH GI malignancy in both mother and father) Aug, Carotid artery disease (ICD-10 - I77.9) Stable carotid ultrasound [id number]-hdhqopew qY asa/clopid as per CAD Aug, Prostate cancer screening (ICD-10 - Z12.5) No LUTs 08/22/211.3 05/2019 1.2 07/2018 1.2 06/2017 1.2 05/2016 0.9 01/2015 0.8 04/2014 0.8 08/2013 1.1 07/2012 0.6 08/2011 0.10 October 2010 PSA stable at 0.6 Aug, Vitamin D deficiency (ICD-10 - E55.9) 03/24/21 42, 9.3, 26 12/06/20 36, 10.2 05/2019 35, 9.7, 29 02/2018 18, 9.1, 45 06/2017 28, 8.8, 31 09/2016 vitamin D 34, 9.5, PTH 22 on D3 5K Aug, Obesity (ICD-10 - E66.9) Encouraged weight loss Aug, Gastroesophageal reflux disease with eso phagitis (ICD-10 - K21.0) Stable on famo 10 Aug, CKD (chronic kidney disease) stage 3, GFR 30-59 ml/min (ICD-10 - N18.3) baseline cr ~1.3 PLAN OF TREATMENT Medication Medication Name Sig Start Date Stop Date Invokana 300 MG 1 tablet Orally every morning for 90 day(s) Clopidogrel Bisulfate 75 MG 1 tablet Orally Once a day for 90 da y(s) Glimepiride 1 MG 1 tab Orally AC bid for 90 day(s) Carvedilol 12.5mg 1 tablet orally Twice a day for 90 day(s) Aspirin 325 MG 1 tablet Orally Once a day Famotidine 10 mg 1 tablet as needed Orally Once a day Lisinopril 20 MG 1 tablet Orally bid for 90 day(s) Vitamin D (Cholecalciferol) 5000 UNIT 1 tab Orally Once a day Cyanocobalamin 1000 MCG 1 tablet Orally Once a day for 90 day(s) Rosuvastatin Calcium 40 MG 1 tablet Orally Once a day for 90 day (s) Trulicity 4.5 MG/0.5ML 4.5 gm Subcutaneous weekly for 90 day(s) Glucophage 850 MG 1 tablet with meals Orally 3 times a day for 9 0 day(s) Treatment Notes Assessment Notes Clinical Notes CKD (chronic kidney disease) stage 3, GFR 30-59 ml/min baseline cr ~1.3 Preoperative clearance On 03/24/21 the pa tient had a stable CBCD and CMP. On 08/26/21 the patient's EKG revealed normal sinsu bradycardia at 55 beats per minute c iRBBB/LAFB, no hypertrophy and lateral repolarization abnormality similar to 11/6/20 EKG. On the AM of the surgery, the patient will take carvedilol and lisinopril with a sip of water. The patient is currently medically optimized for the above surgery. By the modified RCRI, the patient's 30 day MACE risk is 4%. The patient wishes to assume this risk and proceed with the above surgery. Gastroesophageal reflux disease with esophagitis Stable on famo 10 MGUS (monoclonal gammopathy of unknown significance) Patient without CRAB (08/22/21 sIFE IgM lambda)08/22/21 stable at 15.1, SPEP 0.22 Diabetes mellitus type 2 with complications C: wean off glim, basal anbffam17/18/21 6.6; ergo, dulag 3 to 4.5 and glim 2 to 1 given FBG 90-110 s hypos03/24/21 6.9; ergo, dualg 1.5 to 7.38/ 9.3; therefore, + glim 2 BID05/2019 7.8; therefore restart ADA diet and cb AC br01/2019 6. 6.2 and 16# and but AC br HBGs 140-160s; therefore, gave new VF to cb02/2018 8.0; therefore, restarted Invokana 300 qAM (given now feel it WAS helping-AC BG high 100s despite increased exercise, decreased weight and jagruti to dulag switch)10/2017 7.2; therefore, therefore, held Invokana and Januvia 100 and started Trulicity 1.5 qW06/2017 7.3 c intact C-peptide 4.2 c FBS 179; therefore, restarted Invokana 300 qAM s improvement01/2017 9.5; therefore, started Invokana 300 qAM and strict diet c AC breakfast ~130s2 159 108 YOSEPH/creatinine 4 Essential (primary) hypertension Stable on lisin 20 BID, carve 12.5 BIDC: readd + CTD12/06/20 20/1.3, 5.1, 2. 33/1.4, 4.4; therefore, held CTD as per HTN and renal US01/2019 30/1.2, 4. 16/1.0, 4.2, 2. 16/0.9, 4.2-off both CTD 12.5 and Invokana 300 qAM6/2017 up to 33/1.5, 4.0 c URI c dehydration- CTD 12.5 and Invokana 300 held by B12 deficiency 03/24/21 14.9, 94, fe r 737/2018 14.9, r38/1. 14.7, 91, r35, 2.012/2017 15.9, 813/2012 14. hemoglobin stable at 15.03/24/21 8867/2018 33627/2017 865 on 1663401/2017 B12 1148 Mixed hyperlipidemia 08/22/21 44/28/245, 134, <0. /2017 39/29/196, 128, <0.3 on rosuva 40112/2016 64/34/244, 129, <0. 55/33/262, CPK 18612/06/20 2.4, 0. 1.6, 0.812/2016 1.9, 0.811/2015 1.9, FT4 0.8, TPO Ab -05/2016 2. 1.510/2010 TSH 1.0 CAD (coronary artery disease) No recurre nt symptoms Obesity Encouraged weight lo Vitamin D deficiency 03/24/21 42, 9.3, 26 2 36, 10. 35, 9.7, 294/2017 18, 9.1, 458 28, 8.8, 3111/2016 vitamin D 34, 9.5, PTH 22 on D3 5K Colon cancer screening repeat EGD/colon 05/2023-W (given FH GI malignancy in both mother and father) Carotid artery disease Stable carotid ul trasound [id number]-yoadevcf qYasa/clopid as per CAD Prostate cancer screening No LUTs 11. 1. 1. 1. 0. 0. 0.810/2012 1. 0.610/2010 0.6Decemb2009 PSA stable at 0.6 Treatment Notes Test Name Order Date ELECTROCARDIOGRAM, COMPLETE EKG 2021-08-26 Future Test Test Name Order Date HEMOGLOBIN A1c 20211126 MICROALBUMIN RANDOM 20211126 FREE KAPPA & LAMBDA LT CHAIN S 20211126 FREE KAPPA & LAMBDA LT CHAIN U 20211126 CBC with Auto Differential 20211126 VITAMIN B12 LEVEL 20211126 Comprehensive Metabolic Profile (CMP) 20211126 MAGNESIUM LEVEL 20211126 NT-PRO BNP 20211126 PTH INTACT 20211126 VITAMIN D 25-HYDROXY 20211126 Next Appt Details 4 Months, BW 1W prior Reason: Provider Name:Dylon Gibson, 2022-01-05 1 0:15:00 AM, [address], , [place], [address], Insurance Providers Payer Name Payer Address Payer Phone Insured Name Patient Relati onship to Insured Coverage Start Date Coverage End Date MEDICARE Part A and B [address] [facility] [phone] [phone] REFUGIO MENDOZA self [facility] [address] [id number] [facility] [phone] REFUGIO MENDOZA self
--- OUTSIDE RECORDS SUMMARY | 2021-09-01 06:34 | CCD ---
Author Author [facility] Organization [facility] Address Unknown Phone Unavailable Care Team Providers Care Keypuncher Name Role Phone Dylon Gibson Unavailable PROBLEMS Type Condition ICD9-CM Code [id number] Code Onset Dates Condition S tatus W/U Status Risk SNOMED Code Notes Problem Mixed hyperlipidemia E78.2 Active confirmed 950707892 Problem Prostate cancer screening Z12.5 Active confirmed 815941478 Problem CKD (chronic kidney disease) stage 3, GFR 30-59 ml/min N18.3 Active confirmed 390555298 Problem Carotid artery disease I77.9 Active confirmed 081030638 Problem Colon cancer screening Z12.11 Active confirmed 957129644 Problem Essential (primary) hypertension I10 Active conf irmed 15174512 Problem Gastroesophageal reflux disease with esophagitis K 21.0 Active confirmed 753857243 Problem CAD (coronary artery disease) I25.10 Active confirm ed 96326137 Problem Diabetes mellitus type 2 with complications E11.8 Active confirmed 050034689 Problem Vitamin D deficiency E55.9 Active confirmed 60996804 Problem B12 deficiency E53.8 Active confirmed 88695 4004 Problem Obesity E66.9 Active confirmed 742351379 ALLERGIES Allergen (clinical drug ingredient) Drug/Non Drug Allergy do cumented on EMR Reaction Allergy Type Onset Date Status cefuroxime Ceftin Rash Drug Allergy Active ENCOUNTERS from 1950 to 2021-08-19 Encounter Location Date Provider Diagnosis [address] [phone] [place] [address] 15 Aug, 2021 Dylon Gibson IMMUNIZATIONS Vaccine Route Administration Date Status COVID-19 dose #1 given elsewhere Unspecified IM Intramuscular Ja n 2020 Administered Influenza 18 yrs & older [...] Education Language: Question Answer Notes Languages spoken: Cymraes Mormon: Question Answer Notes Mormon 21 Yarsanism Sexual Hx: Question Answer Notes Had sex [...] REASON FOR REFERRAL No Information VITAL SIGNS No information MEDICATIONS Medication SIG (Take, Route, Frequency, Duration) Notes Start Da te End Date Status Trulicity 1.5 MG/0.5ML INJECT THE CONTENTS OF ONE P EN UNDER THE SKIN WEEKLY for 84 Active Trulicity 3 MG/0.5ML 0.5 ml Subcutaneous weekly for 90 day(s) Active Chlorthalidone 25 MG TAKE ONE-HALF TABLET BY MOUT H IN THE MORNING WITH FOOD ONCE A DAY for 90 Active Vitamin D (Cholecalciferol) 5000 UNIT 1 tab Orally Once a day Active Ascorbic Acid 500 mg 1 capsule Orally Once a day Active Systane 0.4-0.3 % 1 drop into affected eye Ophthalmic Three times a d ay Active CoQ10 200 MG 1 capsule with a meal Orally Once a day for 30 day(s) Active One touch ultra blue as directed subcutaneously bid for 90 day(s ) Apr, Active Clopidogrel Bisulfate 75 MG 1 tablet Orally Once a day for 90 Active Famotidine 10 mg 1 tablet as needed Orally Once a day Active Rosuvastatin Calcium 40 MG 1 tablet Orally Once a day for 90 Active Carvedilol 12.5mg 1 tablet orally Twice a day for 90 day(s) Active Invokana 300 MG 1 tablet Orally every morning for 90 day(s) Active Blood Glucose Test - as directed subcutaneously bid DX: E11.8 fo r 30 day(s) Jul, Active Carvedilol 12.5mg 1 tablet orally Twice a day for 90 Active Aspirin 325 MG 1 tablet Orally Once a day Active AREDS OTC Active Glimepiride 2 MG TAKE ONE TABLET BY MOUTH TWO TIMES A DAY for 90 Active Glucophage 850 MG TAKE ONE TABLET BY MOUTH THREE TIMES A D AY WITH MEALS for 90 Active Glimepiride 2 MG 1 tab Orally AC bid for 90 day(s) Active Carvedilol 12.5 MG TAKE ONE TABLET BY MOUTH TWICE A DAY for 90 Active Lisinopril 20 MG 1 tablet Orally bid for 90 Active Vitamin B-12 1000 MCG 1 tablet-OTC Orally Once a day Active PROCEDURES No Information RESULTS No Results REASON FOR VISIT labs before Pre Op appointment? MEDICAL (GENERAL) HISTORY Type Description Date Medical [...] 52, trace MR-Antecol Medical History CKD, stage III Surgical History kgjwunjpotl-idsliztttnehhl-Plvlznbtc 07/07 007, 05/2018 Hospitalization History none Goals Section No Information Health Concerns No Information MEDICAL EQUIPMENT No Information MENTAL STATUS No Information FUNCTIONAL STATUS No Information ASSESSMENTS No Information PLAN OF TREATMENT Medication Medication Name Sig Start Date Stop Date Rosuvastatin Calcium 40 MG 1 tablet Orally Once a day for 90 Carvedilol 12.5 MG TAKE ONE TABLET BY MOUTH TWICE A DAY for 90 Famotidine 10 mg 1 tablet as needed Orally Once a day Clopidogrel Bisulfate 75 MG 1 tablet Orally Once a day for 90 Trulicity 3 MG/0.5ML 0.5 ml Subcutaneous weekly for 90 day(s) Chlorthalidone 25 MG TAKE ONE-HALF TABLET BY MOUT H IN THE MORNING WITH FOOD ONCE A DAY for 90 Vitamin B-12 1000 MCG 1 tablet-OTC Orally Once a day Glimepiride 2 MG 1 tab Orally AC bid for 90 day(s) Invokana 300 MG 1 tablet Orally every morning for 90 day(s) Lisinopril 20 MG 1 tablet Orally bid for 90 Glimepiride 2 MG TAKE ONE TABLET BY MOUTH TWO TIMES A DAY for 90 Carvedilol 12.5mg 1 tablet orally Twice a day for 90 day(s) Trulicity 1.5 MG/0.5ML INJECT THE CONTENTS OF ONE P EN UNDER THE SKIN WEEKLY for 84 One touch ultra blue as directed subcutaneously bid for 90 day(s ) Apr, Vitamin D (Cholecalciferol) 5000 UNIT 1 tab Orally Once a day Aspirin 325 MG 1 tablet Orally Once a day Glucophage 850 MG TAKE ONE TABLET BY MOUTH THREE TIMES A D AY WITH MEALS for 90 Next Appt Details Provider Name:Dylon Gibson, 2021-08-26 0 9:45:00 AM, [address] [place] [address] , [place], [address], Provider Name:Dylon Gibson, 2021-08-30 0 9:15:00 AM, [address] [place] [address] [phone] [place] [address], [phone], Insurance Providers Payer Name Payer Address Payer Phone Insured Name Patient Relati onship to Insured Coverage Start Date Coverage End Date MEDICARE Part A and B [address] [facility] [address] [facility] [address] [id number] [facility] [phone] REFUGIO MENDOZA self
--- OUTSIDE RECORDS SUMMARY | 2021-09-01 06:34 | CCD ---
Author Author [facility] Organization [facility] Address Unknown Phone Unavailable Care Team Providers Care Burial Vault Setter Name Role Phone Arthur, Dylon Unavailable PROBLEMS Type Condition ICD9-CM Code [id number] Code Onset Dates Condition S tatus W/U Status Risk SNOMED Code Notes Problem Mixed hyperlipidemia E78.2 Active confirmed 344504454 Problem Prostate cancer screening Z12.5 Active confirmed 081927327 Problem CKD (chronic kidney disease) stage 3, GFR 30-59 ml/min N18.3 Active confirmed 348272803 Problem Carotid artery disease I77.9 Active confirmed 405797558 Problem Colon cancer screening Z12.11 Active confirmed 820223581 Problem Essential (primary) hypertension I10 Active conf irmed 20547460 Problem Gastroesophageal reflux disease with esophagitis K 21.0 Active confirmed 409436333 Problem CAD (coronary artery disease) I25.10 Active confirm ed 35537314 Problem Diabetes mellitus type 2 with complications E11.8 Active confirmed 087937415 Problem Vitamin D deficiency E55.9 Active confirmed 28648809 Problem B12 deficiency E53.8 Active confirmed 80377 4004 Problem Obesity E66.9 Active confirmed 113061959 ALLERGIES Allergen (clinical drug ingredient) Drug/Non Drug Allergy do cumented on EMR Reaction Allergy Type Onset Date Status cefuroxime Ceftin Rash Drug Allergy Active ENCOUNTERS from 1950 to 2021-08-19 Encounter Location Date Provider Diagnosis [address] [phone] [place] [address] 15 Aug, 2021 Dylon Gibson Diabetes mellitus type 2 wit h complications E11.8 IMMUNIZATIONS Vaccine Route Administration Date Status COVID-19 dose #1 given elsewhere Unspecified IM Intramuscular n 2020 Administered Influenza 18 yrs & [...] Education Language: Question Answer Notes Languages spoken: American Protestant: Question Answer Notes Protestant 21 Episcopal Sexual Hx: Question Answer Notes Had sex [...] Information RESULTS No Results REASON FOR VISIT New Refill Request MEDICAL (GENERAL) HISTORY Type Description Date Medical [...] Medical History CKD, stage III Surgical History dihrvdatrck-nvdcipqbjouzme-Hgeclevuw 07/07 007, 05/2018 Hospitalization History none Goals Section No Information Health Concerns No Information MEDICAL EQUIPMENT No Information MENTAL STATUS No Information FUNCTIONAL STATUS No Information ASSESSMENTS Encounter Date Diagnosis Assessment Notes Treatment Notes Treatm ent Clinical Notes Aug, Diabetes mellitus type 2 with complications (ICD -10 - E11.8) PLAN OF TREATMENT Medication Medication Name Sig [...] Provider Name:Dylon Gibson, 2021-08-26 0 9:45:00 AM, [address] [place] [address], , [place], [address], Provider Name:Dylon Gibson, 2021-08-30 0 9:15:00 AM, [address] [facility], , [place], [address], Insurance Providers Payer Name Payer Address Payer Phone Insured Name Patient Relati onship to Insured Coverage Start Date Coverage End Date [facility] [address] [id number] [facility] [phone] REFUGIO MENDOZA self MEDICARE Part A and B [address] [facility] [phone] REFUGIO MENDOZA self
--- OUTSIDE RECORDS SUMMARY | 2021-09-01 06:34 | CCD ---
Author Author [facility] Organization [facility] Address Unknown Phone Unavailable Care Team Providers Care Open Hearth Worker Name Role Phone Dylon Gibson Unavailable PROBLEMS Type Condition ICD9-CM Code [id number] Code Onset Dates Condition S tatus W/U Status Risk SNOMED Code Notes Problem CAD (coronary artery disease) I25.10 Active confirm ed 79014513 Problem Carotid artery disease I77.9 Active confirmed 761234079 Problem Prostate cancer screening Z12.5 Active confirmed 828892936 Problem CKD (chronic kidney disease) stage 3, GFR 30-59 ml/min N18.3 Active confirmed 965465611 Problem Diabetes mellitus type 2 with complications E11.8 Active confirmed 460593483 Problem Gastroesophageal reflux disease with esophagitis K 21.0 Active confirmed 362554065 Problem Mixed hyperlipidemia E78.2 Active confirmed 925815775 Problem 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 Active confirmed 187869804 Problem Essential (primary) hypertension I10 Active conf irmed 62089129 Problem Vitamin D deficiency E55.9 Active confirmed 03941789 Problem B12 deficiency E53.8 Active confirmed 70275 4004 Problem Obesity E66.9 Active confirmed 760279577 Problem Colon cancer screening Z12.11 Active confirmed 107690782 ALLERGIES Allergen (clinical drug ingredient) Drug/Non Drug Allergy do cumented on EMR Reaction Allergy Type Onset Date Status cefuroxime Ceftin Rash Drug Allergy Active ENCOUNTERS from 1950 to 2021-08-31 Encounter Location Date Provider Diagnosis [facility] [address] [facility] [phone] [place] [address] Aug, Dyoln Arthur IMMUNIZATIONS Vaccine Route Administration Date Status COVID-19 [...] Education Language: Question Answer Notes Languages spoken: Jordanian Buddhist: Question Answer Notes Buddhist 21 Druze Sexual Hx: Question Answer Notes [...] Information RESULTS No Results REASON FOR VISIT No Information MEDICAL (GENERAL) HISTORY Type Description Date Medical History CAD status post non-Q wave M I April 2010, status post CABG x 4 04/2010-Dr. Acevedo/ [facility]ST-no reversibility, mild increased risk-[place] Medical History [...] IIIa Medical History MGUS/IgM lambda Surgical History sxgrvakbnqe-iqzuzglfoxqofx-Rojxgucwr 07/07 007, 05/2018 Hospitalization History none Goals [...] times a day for 9 0 day(s) Next Appt Details Provider Name:Dylon Gibson, 2022-01-05 1 0:15:00 AM, [address] [facility], , [place], [address], Insurance Providers Payer Name Payer Address Payer Phone Insured Name Patient Relati onship to Insured Coverage Start Date Coverage End Date [facility] [address] [id number] [facility] [phone] REFUGIO MENDOZA MEDICARE Part A and B [address] [facility] [phone] [phone] REFUGIO MENDOZA
--- OUTSIDE RECORDS SUMMARY | 2021-09-01 06:35 | CCD ---
Author Author Rafal Lamas MD [facility] Organization Rafal Lamas MD [facility] Address [address] [address] Phone Care Team Providers Care Cumulative Effects Analyst Name Role Phone Dylon Gibson MD PP [phone] Janette DO, Len Unavailable [phone] Reason for Referral No Reason for Referral Recorded Problems Includes: Active, inactive, and resolved Problems All Visits Onset Date - Time Resolved Date - Time Provider Co ndition Status Blepharitis Squamous 08/29/2019 - 12:00AM Len rivas DO Active Squamous blepharitis right lower eyelid 08/29/2019 - 12:00AM Len Savage DO Active Squamous blepharitis left upper eyelid 08/29/2019 - 12:00AM Len Savage DO Active Squamous blepharitis left lower eyelid 08/29/2019 - 12:00AM Len Savage DO Active Conjunctivitis Acute Atopic 07/30/2019 - 12:00AM Isai Savage DO Active Chalazion 07/30/2019 - 12:00AM Len Savage DO Active Dry Eye Syndrome Both Eyes 07/30/2019 - 12:00AM Dustin Savage DO Active Macular Degeneration Nonexudative Bilateral Early Dry Stage 02/08/2017 - 12:00AM Len Savage DO Active Taking Medication For Diabetes Long-term Use of Oral H ypoglycemics 02/08/2017 - 12:00AM Len Savage DO Active Cataract Senile Cortical Bilateral 02/08/2017 - 12:00AM Len Savage DO Active Diabetes Mellitus Type 2 - Uncomplicated, Controlled 02/08/2017 - 12:00AM Len Savage DO Active History of Nicotine Dependence 02/08/2017 - 12:00AM Mauricio Savage DO Active Essential Hypertension 02/08/2017 - 12:00AM Len armando DO Active Cataract - Traumatic 02/08/2017 - 12:00AM Len rivas DO Active Borderline Glaucoma Open Angle with Borderline Finding s Both Eyes 02/08/2017 - 12:00AM Len Savage DO Active Posterior Vitreous Detachment Right Eye 02/08/2017 - 12:00AM Len Savage DO Active Plan of Treatment Future Appointments Date Time Location Provider Cataract Evaluation 06/24/2021 9:15AM Rafal Lamas MD [facility] Assessments Includes: Assessments for all patient encounters Findings Encounter Date Chalazion 3 - 4 Week Follow-Up with Len meeks DO 09/19/2019 Chalazion 3 - 4 Week Follow-Up with Len meeks DO 08/29/2019 Squamous blepharitis right upper eyelid , right lower eyelid, left upper eyelid and left lower eyelid 3 - 4 Week Follow-Up with Len Savage DO 019 Acute atopic conjunctivitis 6 Month Follow-Up with Len cotto DO 07/30/2019 Assessment of long-term use of oral hypoglycemics 6 Mo nth Follow-Up with Len Savage DO 07/30/2019 Chalazion 6 Month Follow-Up with Len Savage DO 07/30/2019 Dry eye syndrome of both eyes 6 Month Follow-Up with Len Savage DO 07/30/2019 Early dry stage nonexudative macular degeneration of b oth eyes 6 Month Follow-Up with Len Meadestein DO 07/30/2019 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 6 Month Fo llow-Up with Len Savage DO 07/30/2019 Type 2 diabetes mellitus - uncomplicated, controlled 6 Month Follow-Up with Len Savage DO 07/30/2019 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 VISUAL FIE LD 24-2 with Len Meadestein DO 05/15/2019 Assessment of long-term use of oral hypoglycemics 8 Mo nth Follow-Up and Testing with Len Savage DO 01/29/2019 Bilateral cortical senile cataract 8 Month Follow-Up a nd Testing with Len Meadestein DO 01/29/2019 Early dry stage nonexudative macular degeneration of b oth eyes 8 Month Follow-Up and Testing with Len Savage DO 01/29/2019 Essential hypertension 8 Month Follow-Up and Testing with Ma tthew Janette DO 01/29/2019 History of nicotine dependence 8 Month Follow-Up and T esting with Len Janette DO 01/29/2019 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 8 Month Fo llow-Up and Testing with Len Janette DO 01/29/2019 Traumatic cataract 8 Month Follow-Up and Testing with Matth ew Janette DO 01/29/2019 Type 2 diabetes mellitus - uncomplicated, controlled 8 Month Follow-Up and Testing with Len Janette DO 01/29/2019 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 VISUAL FIE LD 24-2 with Len Janette DO 10/21/2018 Assessment of long-term use of oral hypoglycemics 8 Mo nth Follow-Up and Testing with Len Janette DO 05/28/2018 Bilateral cortical senile cataract 8 Month Follow-Up a nd Testing with Len Janette DO 05/28/2018 Early dry stage nonexudative macular degeneration of b oth eyes 8 Month Follow-Up and Testing with Len Janette DO 05/28/2018 Essential hypertension 8 Month Follow-Up and Testing with Ma tthew Janette DO 05/28/2018 History of nicotine dependence 8 Month Follow-Up and T esting with Len Janette DO 05/28/2018 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 8 Month Fo llow-Up and Testing with Len Janette DO 05/28/2018 Traumatic cataract 8 Month Follow-Up and Testing with Matth ew Janette DO 05/28/2018 Type 2 diabetes mellitus - uncomplicated, controlled 8 Month Follow-Up and Testing with Len Janette DO 05/28/2018 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 IOP CHECK with M atthew Janette DO 10/09/2017 Assessment of long-term use of oral hypoglycemics 6 Mo nth Follow-Up OCT Disc with Len Janette DO 08/23/2017 Bilateral cortical senile cataract 6 Month Follow-Up O CT Disc with Len Janette DO 08/23/2017 Early dry stage nonexudative macular degeneration of b oth eyes 6 Month Follow-Up OCT Disc with Len Janette DO 08/23/2017 Essential hypertension 6 Month Follow-Up OCT Disc with Matth ew Janette DO 08/23/2017 History of nicotine dependence 6 Month Follow-Up OCT D isc with Len Janette DO 08/23/2017 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 6 Month Fo llow-Up OCT Disc with Len Janette DO 08/23/2017 Traumatic cataract 6 Month Follow-Up OCT Disc with Len Savage DO 08/23/2017 Type 2 diabetes mellitus - uncomplicated, controlled 6 Month Follow-Up OCT Disc with Len Savage DO 08/23/2017 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 VISUAL FIE LD 24-2 with Len Savage DO 04/09/2017 Quadrantanopsia VISUAL FIELD 24-2 with Len Savage DO 04/09/2017 Bilateral cortical senile cataract NEW PATIENT WITH RE FERRAL with Len Savage DO 02/08/2017 Early dry stage nonexudative macular degeneration of b oth eyes NEW PATIENT WITH REFERRAL with Len Savage DO 02/08/2017 Essential hypertension NEW PATIENT WITH REFERRAL with Dustin Savage DO 02/08/2017 History of nicotine dependence NEW PATIENT WITH REFERR AL with Len Savage DO 02/08/2017 Long-term use of oral hypoglycemics NEW PATIENT WITH R EFERRAL with Len Savage DO 02/08/2017 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 NEW PATIEN T WITH REFERRAL with Len Savage DO 02/08/2017 Posterior vitreous detachment in the right eye NEW PAT IENT WITH REFERRAL with Len Savage DO 02/08/2017 Traumatic cataract NEW PATIENT WITH REFERRAL with Len cotto DO 02/08/2017 Type 2 diabetes mellitus - uncomplicated, controlled N EW PATIENT WITH REFERRAL with Len Savage DO 02/08/2017 Instructions Instructions not supported for this document typeNo Instructions Recorded Medical Equipment - Implanted Devices Includes: Current and historical DevicesNo Medical Equipment Recorded Medications Includes: Current and historical Medications Current Medications (continue as prescribed) Doxycycline Hyclate 50 MG Oral Tablet 08/29/2019 Pr ovider: Len Savage DO Diagnosis: Squamous blepharitis right upper eyelid twice a day Lisinopril 20 MG Oral Tablet 07/30/2019 Provider: Diagnosis: Trulicity 0.75MG/0.5ML Subcutaneous Solution Pen-injector Provider: Diagnosis: Clopidogrel Bisulfate 75MG Oral Tablet 02/08/2017 P auryder: Diagnosis: Carvedilol 12.5MG Oral Tablet 02/08/2017 Provider: Diagnosis: MetFORMIN HCl 850MG Oral Tablet 02/08/2017 Provider : Diagnosis: Aspirin 325MG Oral Tablet 02/08/2017 Provider: Diagnosis: Invokana 300MG Oral Tablet 02/08/2017 Provider: Diagnosis: Famotidine 10MG Oral Tablet 02/08/2017 Provider: Diagnosis: Crestor 40MG Oral Tablet 02/08/2017 Provider: Diagnosis: B-12 1000-400MCG Sublingual Tablet, sublingual 02/08/2017 Provider: Diagnosis: Lutien 6mg Oral Tablet 02/08/2017 Provider: Diagnosis: Systane 0.4-0.3% Ophthalmic Solution 02/08/2017 Pro vider: Diagnosis: [facility] Vitamin C 500MG Oral Tablet 02/08/2017 Provider : Diagnosis: Dialyvite Vitamin D 5000 Oral Capsule, conventional 02/09/20 17 Provider: Diagnosis: Past Medications on file TobraDex 0.3-0.1% Ophthalmic Suspension 07/30/2019 - 019 Provider: Len Savage DO Diagnosis: Chalazion left upper eyelid One drop three times a day in the left eye Lumigan 0.01% Ophthalmic Solution 08/23/2017 - 08/18/2018 Pr ovider: Len Savage DO Diagnosis: Open angle with bord martin findings, low risk, bilateral One drop in each eye at night time. Lisinopril 30MG Oral Tablet 02/08/2017 - 02/08/2017 Provider : Diagnosis: Carvedilol 12.5MG Oral Tablet 02/08/2017 - 02/08/2017 Provid er: Diagnosis: Dialyvite Vitamin D 5000 Oral Capsule, conventional 02/09/20 17 - 05/28/2018 Provider: Diagnosis: Lisinopril 30MG Oral Tablet 02/08/2017 - 07/30/2019 Provider : Diagnosis: Chlorthalidone 25MG Oral Tablet 02/08/2017 - 07/30/2019 Prov ider: Diagnosis: Januvia 100MG Oral Tablet 02/08/2017 - 05/28/2018 Provider: Diagnosis: Medications Administered Includes: Administered Medications in patient's chartNo Administered Medications Recorded Vital Signs Includes: Vital Signs from 06/15/2020 through 06/15/2021No Vital Signs Recorded For Specified Dates Results Includes: Results from 06/15/2020 through 06/15/2021No Results Recorded For Specified Dates History of Present Illness History of Present Illness not supported for this document typeNo History of Present Illness Recorded Social History Description Last Updated Tobacco non-user 05/24/2021 A social drinker 05/24/2021 No tobacco use 05/24/2021 Not using drugs 05/24/2021 Smoking status : Former smoker 05/24/2021 Procedures and Surgical History Surgical History Last Updated Surgical / procedural history 05/24/2021 Medical History Includes: Medical History in patient's chart Description Last Updated History of diabetes mellitus Type 2: A1 C:6.[address] Gibson FBS: 143 This morning 05/24/2021 Currently wearing eyeglasses 05/24/2021 History of hypertension 05/24/2021 No recent change in medical history 05/24/2021 Reported medical history TIA in 2006, Q uadrouple bypass 2009,heart attack and stroke April 2010 ~As a child, casted sinker back and hit eye causing hole in iris 05/24/2021 Family History Includes: Family History in patient's chart Description Last Updated Maternal history of family history of cancer 1 Paternal history of family history of cancer 1 Review of Systems Review of Systems not supported for this document typeNo Review of Systems Recorded Mental Status Mental Status not supported for this document typeNo Mental Status Recorded Functional Status Functional Status not supported for this document typeNo Functional Status Recorded Physical Exam Physical Exam not supported for this document typeNo Physical Exam Recorded Immunizations Includes: Immunizations in patient's chartNo Immunizations Recorded Allergies Includes: Active, inactive, and resolved AllergiesNo Known Allergies Encounters Includes: Encounters from 06/15/2020 through 06/15/2021 Encounter Provider Location Date Check-In Time Check-Out Time D iagnosis VISUAL FIELD 24-2 Rafal Lamas MD, FACS Rafal Lamas MD [facility] 06/02/2021 10:23AM 10:57AM OCT RETINA Rafal Lamas MD [facility] 06/02/2021 10:23AM 10: 58AM 1 Year Follow-Up & Testing Len Carver MD [facility] 05/24/2021 12:13PM 1:18PM Insurance Includes: Active Insurance Policies Plan Name Member ID Group # Subscriber Relationship Effective Da pancho 1 - Medicare Part B [facility] ([facility]) [id number] Iain zheng Self 2 - [employer] /PRIOR AUTHS NEEDED [id number] Iain Mendoza Self Advance Directives Includes: Current Advance DirectivesNo Advance Directives Recorded Health Concerns Includes: Active Health ConcernsNo Active Health Concerns Recorded Goals Includes: Active GoalsNo Active Goals Recorded Interventions Includes: Interventions for active GoalsNo Interventions Recorded Evaluations & Outcomes Includes: Evaluations & Outcomes for active GoalsNo Outcomes Recorded
--- OUTSIDE RECORDS SUMMARY | 2021-09-01 06:35 | CCD ---
Author Author Rafal Lamas MD [facility] Organization Rafal Lamas MD [facility] Address [address] [address] Phone Care Team Providers Care Candlemaker Name Role Phone Dylon Gibson MD PP [phone] Janette DO, Len Unavailable [phone] Reason for Referral No Reason for Referral [...] Senile Cortical Bilateral 02/08/2017 - 12:00AM Len Saavge DO Active Diabetes Mellitus Type 2 - [...] Evaluation 06/24/2021 9:15AM Rafal Lamas MD [facility] Assessments Includes: Assessments for all patient encounters [...] Updated Tobacco non-user 05/24/2021 A social drinker 09/19/2019 No tobacco use 09/19/2019 Not using drugs 09/19/2019 Previous smoking history 09/19/2019 Smoking status : Former smoker 09/19/2019 Alcohol 10/09/2017 Procedures and Surgical History Surgical History Last Updated Surgical / procedural history 09/19/2019 Medical History Includes: Medical History in patient's chart Description Last Updated Currently wearing eyeglasses 09/19/2019 History of diabetes mellitus Type 2: A1 C: 6.9 in December [address] Gibson FBS: 120 2 weeks ago 09/19/2019 History of hypertension 09/19/2019 No recent change in medical history 09/19/2019 Reported medical history TIA in 2006, Q uadrouple bypass 2009,heart attack and stroke April 2010 ~As a child, casted sinker back and hit eye causing hole in iris 09/19/2019 History of fundoscopic exam through dilated pupils was performed 05/28/2018 08/29/2019 Family History Includes: Family History in patient's chart Description Last Updated Maternal history of family history of cancer 9 Paternal history of family history of cancer 9 Review of Systems Review of Systems not [...] Rafal Lamas MD, FACS Rafal Lamas MD [facility] 06/02/2021 10:23AM 10:57AM OCT RETINA Rafal Lamas MD [facility] 06/02/2021 10:23AM 10: 58AM 1 Year Follow-Up & Testing Len Carver MD [facility] 05/24/2021 12:13PM 1:18PM Insurance Includes: Active Insurance Policies Plan Name Member ID Group # Subscriber Relationship Effective Da pancho 1 - Medicare Part B [facility] ([facility]) [id number] Iain zheng Self 2 - [employer] Care Management /PRIOR AUTHS NEEDED [id number] Iain Mendoza Self Advance Directives Includes: Current Advance DirectivesNo Advance Directives Recorded Health Concerns Includes: Active Health ConcernsNo Active Health Concerns Recorded Goals Includes: Active GoalsNo Active Goals Recorded Interventions Includes: Interventions for active GoalsNo Interventions Recorded Evaluations & Outcomes Includes: Evaluations & Outcomes for active GoalsNo Outcomes Recorded
--- OUTSIDE RECORDS SUMMARY | 2021-09-01 06:35 | CCD ---
Author Author Rafal Lamas MD [facility] Organization Rafal Lamas MD [facility] Address [address] [address] Phone Care Team Providers Care Scientist Immunology Name Role Phone Dylon Gibson MD PP [phone] Janette DO, Len Unavailable [phone] Reason for Referral No Reason for Referral [...] Conjunctivitis Acute Atopic 07/30/2019 - 12:00AM Isai Savgae DO Active Chalazion 07/30/2019 - 12:00AM Len [...] Updated Tobacco non-user 05/24/2021 A social drinker 05/28/2018 No tobacco use 05/28/2018 Not using drugs 05/28/2018 Previous smoking history 05/28/2018 Smoking status : Former smoker 05/28/2018 Alcohol 10/09/2017 Procedures and Surgical History Surgical History Last Updated No surgical / procedural history 05/28/2018 Medical History Includes: Medical History in patient's chart Description Last Updated No recent change in medical history 05/24/2021 History of fundoscopic exam through dilated pupils was performed 08/23/2017 05/28/2018 History of diabetes mellitus Type 2: A1 C: 9 in [address] Gibson FBS: 190 this morning 05/28/2018 Currently wearing eyeglasses 05/28/2018 History of hypertension 05/28/2018 Reported medical history TIA in 2006, Q uadrouple bypass 2009,heart attack and stroke April 2010 05/28/2018 Family History Includes: Family History in patient's chart Description Last Updated Maternal history of family history of cancer 8 Paternal history of family history of cancer 8 Review of Systems Review of Systems not [...] Lamas MD, FACS Rafal Lamas MD [facility] 06/02/2021 10:23AM 10:57AM OCT RETINA Rafal Lamas MD [facility] 06/02/2021 10:23AM 10: 58AM 1 Year Follow-Up & Testing Len Carver MD [facility] 05/24/2021 12:13PM 1:18PM Insurance Includes: Active Insurance Policies Plan Name Member ID Group # Subscriber Relationship Effective Da pancho 1 - Medicare Part B [facility] ([facility]) [id number] Iain zheng Self 2 - [employer] Care Management /PRIOR AUTHS NEEDED [id number] Iain Mendoza Self Advance Directives Includes: Current Advance DirectivesNo Advance Directives Recorded Health Concerns Includes: Active Health ConcernsNo Active Health Concerns Recorded Goals Includes: Active GoalsNo Active Goals Recorded Interventions Includes: Interventions for active GoalsNo Interventions Recorded Evaluations & Outcomes Includes: Evaluations & Outcomes for active GoalsNo Outcomes Recorded
--- OUTSIDE RECORDS SUMMARY | 2021-09-01 06:35 | CCD ---
Author Author Rafal Lamas MD [facility] Organization Rafal Lamas MD [facility] Address [address] [address] Phone Care Team Providers Care Senior Windows Engineer Name Role Phone Dylon Gibson MD PP [phone] Janette DO, Len Unavailable [phone] Reason for Referral No Reason for Referral [...] Evaluation 06/24/2021 9:15AM Rafal Lamas MD P [facility] Assessments Includes: Assessments for all [...] Updated Tobacco non-user 05/24/2021 A social drinker 08/29/2019 No tobacco use 08/29/2019 Not using drugs 08/29/2019 Previous smoking history 08/29/2019 Smoking status : Former smoker 08/29/2019 Alcohol 10/09/2017 Procedures and Surgical History Surgical History Last Updated Surgical / procedural history 08/29/2019 Medical History Includes: Medical History in patient's chart Description Last Updated Currently wearing eyeglasses 08/29/2019 History of diabetes mellitus Type 2: A1 C: 6.9 in December [address] Gibson FBS: 120 2 weeks ago 08/29/2019 History of fundoscopic exam through dilated pupils was performed 05/28/2018 08/29/2019 History of hypertension 08/29/2019 No recent change in medical history 08/29/2019 Reported medical history TIA in 2006, Q uadrouple bypass 2009,heart attack and stroke April 2010 ~As a child, casted sinker back and hit eye causing hole in iris 08/29/2019 Family History Includes: Family History in [...] Rafal Lamas MD, FACS Rafal Lamas MD [facility] 06/02/2021 10:23AM 10:57AM OCT RETINA Rafal Lamas MD [facility] 06/02/2021 10:23AM 10: 58AM 1 Year Follow-Up & Testing Len Carver MD [facility] 05/24/2021 12:13PM 1:18PM Insurance Includes: Active Insurance Policies Plan Name Member ID Group # Subscriber Relationship Effective Da pancho 1 - Medicare Part B [facility] ([facility]) [id number] Iain zheng Self 2 - UMR Care Management /PRIOR AUTHS NEEDED [id number] Iain Mendoza Self Advance Directives Includes: Current Advance DirectivesNo Advance Directives Recorded Health Concerns Includes: Active Health ConcernsNo Active Health Concerns Recorded Goals Includes: Active GoalsNo Active Goals Recorded Interventions Includes: Interventions for active GoalsNo Interventions Recorded Evaluations & Outcomes Includes: Evaluations & Outcomes for active GoalsNo Outcomes Recorded
--- OUTSIDE RECORDS SUMMARY | 2021-09-01 06:35 | CCD ---
Author Author Rafal Lamas MD [facility] Organization Rafal Lamas MD [facility] Address [address] [address] Phone Care Team Providers Care Plasma Specialist Name Role Phone Dylon Gibson MD PP [phone] Janette DO, Len Unavailable [phone] Reason for Referral No Reason for Referral [...] Evaluation 06/24/2021 9:15AM Rafal Lamas MD P [facility] Assessments Includes: Assessments for all [...] Updated Tobacco non-user 05/24/2021 A social drinker 01/29/2019 No tobacco use 01/29/2019 Not using drugs 01/29/2019 Previous smoking history 01/29/2019 Smoking status : Former smoker 01/29/2019 Alcohol 10/09/2017 Procedures and Surgical History Surgical History Last Updated Surgical / procedural history 01/29/2019 Medical History Includes: Medical History in patient's chart Description Last Updated No recent change in medical history 05/24/2021 History of fundoscopic exam through dilated pupils was performed 05/28/2018 01/29/2019 Reported medical history TIA in 2006, Q uadrouple bypass 2009,heart 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 Gibson FBS: 120 2 weeks ago 01/29/2019 Currently wearing eyeglasses 01/29/2019 History of hypertension 01/29/2019 Family History Includes: Family History in patient's [...] Rafal Lamas MD, FACS Rafal Lamas MD [facility] 06/02/2021 10:23AM 10:57AM OCT RETINA Rafal Lamas MD [facility] 06/02/2021 10:23AM 10: 58AM 1 Year Follow-Up & Testing Len Carver MD [facility] 05/24/2021 12:13PM 1:18PM Insurance Includes: Active Insurance Policies Plan Name Member ID Group # Subscriber Relationship Effective Da pancho 1 - Medicare Part B [facility] ([facility]) [id number] Iain zheng Self 2 - UMR Care Management /PRIOR AUTHS NEEDED [id number] Iain Mendoza Self Advance Directives Includes: Current Advance DirectivesNo Advance Directives Recorded Health Concerns Includes: Active Health ConcernsNo Active Health Concerns Recorded Goals Includes: Active GoalsNo Active Goals Recorded Interventions Includes: Interventions for active GoalsNo Interventions Recorded Evaluations & Outcomes Includes: Evaluations & Outcomes for active GoalsNo Outcomes Recorded
--- OUTSIDE RECORDS SUMMARY | 2021-09-01 06:35 | CCD ---
Author Author Rafal Lamas MD [facility] Organization Rafal Lamas MD [facility] Address [address] [address] Phone Care Team Providers Care Internet Designer Name Role Phone Dylon Gibson MD PP [phone] Janette DO, Len Unavailable [phone] Reason for Referral No Reason for Referral [...] Evaluation 06/24/2021 9:15AM Rafal Lamas MD P [facility] Assessments Includes: Assessments for all patient encounters [...] Updated Tobacco non-user 05/24/2021 A social drinker 07/30/2019 No tobacco use 07/30/2019 Not using drugs 07/30/2019 Previous smoking history 07/30/2019 Smoking status : Former smoker 07/30/2019 Alcohol 10/09/2017 Procedures and Surgical History Surgical History Last Updated Surgical / procedural history 07/30/2019 Medical History Includes: Medical History in patient's chart Description Last Updated No recent change in medical history 07/30/2019 Currently wearing eyeglasses 07/30/2019 History of diabetes mellitus Type 2: A1 C: 6.9 in December [address] Gibson FBS: 120 2 weeks ago 07/30/2019 History of fundoscopic exam through dilated pupils was performed 05/28/2018 07/30/2019 History of hypertension 07/30/2019 Reported medical history TIA in 2006, Q uadrouple bypass 2009,heart attack and stroke April 2010 ~As a child, casted sinker back and hit eye causing hole in iris 07/30/2019 Family History Includes: Family History in patient's [...] Rafal Lamas MD, FACS Rafal Lamas MD [facility] 06/02/2021 10:23AM 10:57AM OCT RETINA Rafal Lamas MD [facility] 06/02/2021 10:23AM 10: 58AM 1 Year Follow-Up & Testing Len Carver MD [facility] 05/24/2021 12:13PM 1:18PM Insurance Includes: Active Insurance Policies Plan Name Member ID Group # Subscriber Relationship Effective Da pancho 1 - Medicare Part B [facility] ([facility]) [id number] Iain zheng Self 2 - UMR Care Management /PRIOR AUTHS NEEDED [id number] Iain Mendoza Self Advance Directives Includes: Current Advance DirectivesNo Advance Directives Recorded Health Concerns Includes: Active Health ConcernsNo Active Health Concerns Recorded Goals Includes: Active GoalsNo Active Goals Recorded Interventions Includes: Interventions for active GoalsNo Interventions Recorded Evaluations & Outcomes Includes: Evaluations & Outcomes for active GoalsNo Outcomes Recorded
--- OUTSIDE RECORDS SUMMARY | 2021-09-01 06:35 | CCD ---
Author Author Rafal Lamas MD [facility] Organization Rafal Lamas MD [facility] Address [address] [address] Phone Care Team Providers Care Frozen Foods Manager Name Role Phone Dylon Gibson MD PP [phone] Janette DO, Len Unavailable [phone] Reason for Referral No Reason for Referral [...] Evaluation 06/24/2021 9:15AM Rafal Lamas MD P [facility] Assessments Includes: Assessments for all patient [...] b oth eyes 6 Month Follow-Up with Lne Meadestein DO 07/30/2019 Open angle borderline glaucoma [...] History Description Last Updated Tobacco non-user 05/24/2021 No tobacco use 05/24/2021 A social drinker 02/08/2017 Not using drugs 02/08/2017 Smoking status : Former smoker 02/08/2017 Procedures and Surgical History Surgical History Last Updated No surgical / procedural history 02/08/2017 Medical History Includes: Medical History in patient's chart Description Last Updated No recent change in medical history 05/24/2021 History of fundoscopic exam through dilated pupils was performed 201502/15/2017 Reported medical history TIA in 2006, Q uadrouple bypass 2009,heart attack and stroke April 2010 02/08/2017 Currently wearing eyeglasses 02/08/2017 History of diabetes mellitus Type 2: A1 C: 9.[address] Gibson FBS: 163 2 days ago 02/08/2017 History of hypertension 02/08/2017 Family History Includes: Family History in patient's chart Description Last Updated Maternal history of family history of cancer 7 Paternal history of family history of cancer 7 Review of Systems Review of Systems not [...] Rafal Lamas MD, FACS Rafal Lamas MD [facility] 06/02/2021 10:23AM 10:57AM OCT RETINA Rafal Lamas MD [facility] 06/02/2021 10:23AM 10: 58AM 1 Year Follow-Up & Testing Len Carver MD [facility] 05/24/2021 12:13PM 1:18PM Insurance Includes: Active Insurance Policies Plan Name Member ID Group # Subscriber Relationship Effective Da pancho 1 - Medicare Part B [facility] ([facility]) [id number] Iain zheng Self 2 - UMR Care Management /PRIOR AUTHS NEEDED [id number] Iain Mendoza Self Advance Directives Includes: Current Advance DirectivesNo Advance Directives Recorded Health Concerns Includes: Active Health ConcernsNo Active Health Concerns Recorded Goals Includes: Active GoalsNo Active Goals Recorded Interventions Includes: Interventions for active GoalsNo Interventions Recorded Evaluations & Outcomes Includes: Evaluations & Outcomes for active GoalsNo Outcomes Recorded
--- OUTSIDE RECORDS SUMMARY | 2021-09-01 06:35 | CCD ---
Author Author Rafal Lamas MD [facility] Organization Rafal Lamas MD [facility] Address [address] [address] Phone Care Team Providers Care Ppap Coordinator Name Role Phone Dylon Gibson MD PP [phone] Janette DO, Len Unavailable [phone] Reason for Referral No Reason for Referral [...] Evaluation 06/24/2021 9:15AM Rafal Lamas MD P [facility] Assessments Includes: Assessments for all patient [...] History Description Last Updated Tobacco non-user 05/24/2021 Alcohol 10/09/2017 A social drinker 10/09/2017 Not using drugs 10/09/2017 Smoking status : Former smoker 10/09/2017 No tobacco use 08/24/2017 Previous smoking history 08/24/2017 Procedures and Surgical History Surgical History Last Updated No surgical / procedural history 10/09/2017 Medical History Includes: Medical History in patient's chart Description Last Updated No recent change in medical history 05/24/2021 Currently wearing eyeglasses 10/09/2017 History of diabetes mellitus Type 2: A1 C: 9.[address] Gibson FBS: 163 2 days ago 10/09/2017 History of fundoscopic exam through dilated pupils was performed 201510/09/2017 History of hypertension 10/09/2017 Reported medical history TIA in 2006, Q uadrouple bypass 2009,heart attack and stroke April 2010 10/09/2017 Family History Includes: Family History in patient's [...] Rafal Lamas MD, FACS Rafal Lamas MD [facility] 06/02/2021 10:23AM 10:57AM OCT RETINA Rafal Lamas MD [facility] 06/02/2021 10:23AM 10: 58AM 1 Year Follow-Up & Testing Len Carver MD [facility] 05/24/2021 12:13PM 1:18PM Insurance Includes: Active Insurance Policies Plan Name Member ID Group # Subscriber Relationship Effective Da pancho 1 - Medicare Part B [facility] ([facility]) [id number] Iain zheng Self 2 - UMR Care Management /PRIOR AUTHS NEEDED [id number] Iain Mendoza Self Advance Directives Includes: Current Advance DirectivesNo Advance Directives Recorded Health Concerns Includes: Active Health ConcernsNo Active Health Concerns Recorded Goals Includes: Active GoalsNo Active Goals Recorded Interventions Includes: Interventions for active GoalsNo Interventions Recorded Evaluations & Outcomes Includes: Evaluations & Outcomes for active GoalsNo Outcomes Recorded
--- OUTSIDE RECORDS SUMMARY | 2021-09-01 06:35 | CCD ---
Author Author Rafal Lamas MD [facility] Organization Rafal Lamas MD [facility] Address [address] [address] Phone Care Team Providers Care Hub Lead Name Role Phone Dylon Gibson MD PP [phone] Janette DO, Len Unavailable [phone] Reason for Referral No Reason for Referral [...] Evaluation 06/24/2021 9:15AM Rafal Lamas MD P [facility] Assessments Includes: Assessments for all patient encounters Findings Encounter Date Chalazion 3 - 4 Week Follow-Up with Len meeks DO 09/19/2019 Chalazion 3 - 4 Week Follow-Up with Len meeks DO 08/29/2019 Squamous blepharitis right upper eyelid , right lower eyelid, left upper eyelid and left lower eyelid 3 - 4 Week Follow-Up with eLn Savage DO 019 Acute atopic conjunctivitis 6 [...] both eyes 6 Month Fo llow-Up with eLn Savage DO 07/30/2019 Type 2 diabetes mellitus [...] Updated Tobacco non-user 05/24/2021 No tobacco use 08/24/2017 Previous smoking history 08/24/2017 A social drinker 08/23/2017 Not using drugs 08/23/2017 Smoking status : Former smoker 08/23/2017 Procedures and Surgical History Surgical History Last Updated No surgical / procedural history 08/23/2017 Medical History Includes: Medical History in patient's chart Description Last Updated No recent change in medical history 05/24/2021 History of fundoscopic exam through dilated pupils was performed 02/08/2017 08/24/2017 History of diabetes mellitus Type 2: A1 C: 7.[address] Gibson FBS: 140 2 weeks ago 08/23/2017 Currently wearing eyeglasses 08/23/2017 History of hypertension 08/23/2017 Reported medical history TIA in 2006, Q uadrouple bypass 2009,heart attack and stroke April 2010 08/23/2017 Family History Includes: Family History in patient's [...] Rafal Lamas MD, FACS Rafal Lamas MD [facility] 06/02/2021 10:23AM 10:57AM OCT RETINA Rafal Lamas MD [facility] 06/02/2021 10:23AM 10: 58AM 1 Year Follow-Up & Testing Len Carver MD [facility] 05/24/2021 12:13PM 1:18PM Insurance Includes: Active Insurance Policies Plan Name Member ID Group # Subscriber Relationship Effective Da pancho 1 - Medicare Part B [facility] ([facility]) [id number] Iain zheng Self 2 - UMR Care Management /PRIOR AUTHS NEEDED [id number] Iain Mendoza Self Advance Directives Includes: Current Advance DirectivesNo Advance Directives Recorded Health Concerns Includes: Active Health ConcernsNo Active Health Concerns Recorded Goals Includes: Active GoalsNo Active Goals Recorded Interventions Includes: Interventions for active GoalsNo Interventions Recorded Evaluations & Outcomes Includes: Evaluations & Outcomes for active GoalsNo Outcomes Recorded
--- OUTSIDE RECORDS SUMMARY | 2021-09-01 06:35 | CCD ---
Author Author Rafal Lamas MD [facility] Organization Rafal Lamas MD [facility] Address [address] [address] Phone Care Team Providers Care Substation Designer Name Role Phone Dylon Gibson MD PP [phone] Janette DO, Len Unavailable [phone] Reason for Referral No Reason for Referral [...] Savage DO Active Chalazion 07/30/2019 - 12:00AM eLn Savage DO Active Dry Eye Syndrome Both [...] 06/24/2021 9:15AM Rafal Lamas MD P [facility] Assessments Includes: Assessments for all [...] Rafal Lamas MD, FACS Rafal Lamas MD [facility] 06/02/2021 10:23AM 10:57AM OCT RETINA Rafal Lamas MD [facility] 06/02/2021 10:23AM 10: 58AM 1 Year Follow-Up & Testing Len Carver MD [facility] 05/24/2021 12:13PM 1:18PM Insurance Includes: Active Insurance Policies Plan Name Member ID Group # Subscriber Relationship Effective Da pancho 1 - Medicare Part B [facility] ([facility]) [id number] Iain zheng Self 2 - UMR Care Management /PRIOR AUTHS NEEDED [id number] Iain Mendoza Self Advance Directives Includes: Current Advance DirectivesNo Advance Directives Recorded Health Concerns Includes: Active Health ConcernsNo Active Health Concerns Recorded Goals Includes: Active GoalsNo Active Goals Recorded Interventions Includes: Interventions for active GoalsNo Interventions Recorded Evaluations & Outcomes Includes: Evaluations & Outcomes for active GoalsNo Outcomes Recorded
--- OUTSIDE RECORDS SUMMARY | 2021-09-01 06:35 | CCD ---
Author Author Rafal Lamas MD [facility] Organization Rafal Lamas MD [facility] Address [address] [address] Phone Care Team Providers Care Fruit Stuffer Name Role Phone Dylon Gibson MD PP [phone] Janette DO, Len Unavailable [phone] Reason for Referral No Reason for Referral [...] Detachment Right Eye 02/08/2017 - 12:00AM Len Janette ELENA Active Plan of Treatment Future Appointments Date Time Location Provider Cataract Evaluation 06/24/2021 9:15AM Rafal Lamas MD P [facility] Assessments Includes: Assessments for all patient encounters Findings Encounter Date 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 VISUAL FIE LD 24-2 with Len Savage DO 05/15/2019 Assessment of long-term use of oral hypoglycemics 8 Mo nth Follow-Up and Testing with Len Savage DO 01/29/2019 Bilateral cortical senile cataract 8 Month Follow-Up a nd Testing with Len Savage DO 01/29/2019 Early dry stage nonexudative macular [...] Month Fo llow-Up OCT Disc with Len Savage DO 08/23/2017 Traumatic cataract 6 Month Follow-Up OCT Disc with Len Svaage DO 08/23/2017 Type 2 diabetes mellitus - [...] Clopidogrel Bisulfate 75MG Oral Tablet 02/08/2017 P rovider: Diagnosis: Carvedilol 12.5MG Oral Tablet 02/08/2017 Provider: [...] Recorded Vital Signs Includes: Vital Signs from 06/17/2020 through 06/17/2021No Vital Signs Recorded For Specified Dates Results Includes: Results from 06/17/2020 through 06/17/2021No Results Recorded For Specified Dates History of [...] AllergiesNo Known Allergies Encounters Includes: Encounters from 06/17/2020 through 06/17/2021 Encounter Provider Location Date Check-In Time Check-Out Time D iagnosis TESTING - VISUAL FIELD & OCT Len Villa MD [facility] 06/02/2021 10:23AM 10:57AM Borderline Glaucoma Open Angle with Borderline Findings Both Eyes OCT RETINA Rafal Lamas MD [facility] 06/02/2021 10:23AM 10: 58AM 1 Year Follow-Up & Testing Len Carver MD [facility] 05/24/2021 12:13PM 1:18PM Insurance Includes: Active Insurance Policies Plan Name Member ID Group # Subscriber Relationship Effective Da pancho 1 - Medicare Part B [facility] ([facility]) [id number] Iain zheng Self 2 - UMR Care Management /PRIOR AUTHS NEEDED [id number] Iain Mendoza Self Advance Directives Includes: Current Advance DirectivesNo Advance Directives Recorded Health Concerns Includes: Active Health ConcernsNo Active Health Concerns Recorded Goals Includes: Active GoalsNo Active Goals Recorded Interventions Includes: Interventions for active GoalsNo Interventions Recorded Evaluations & Outcomes Includes: Evaluations & Outcomes for active GoalsNo Outcomes Recorded
--- OUTSIDE RECORDS SUMMARY | 2021-09-01 06:35 | CCD ---
Author Author [facility] Organization [facility] Address Unknown Phone Unavailable Care Team Providers Care Motors And Generators Inspector Name Role Phone Dylon Gibson Unavailable PROBLEMS Type Condition ICD9-CM Code [id number] Code Onset Dates Condition S tatus W/U Status Risk SNOMED Code Notes Problem Mixed hyperlipidemia E78.2 Active confirmed 199866535 Problem Prostate cancer screening Z12.5 Active confirmed 105313665 Problem CKD (chronic kidney disease) stage 3, GFR 30-59 ml/min N18.3 Active confirmed 096293814 Problem Carotid artery disease I77.9 Active confirmed 750914333 Problem Colon cancer screening Z12.11 Active confirmed 832457234 Problem Essential (primary) hypertension I10 Active conf irmed 81048809 Problem Gastroesophageal reflux disease with esophagitis K 21.0 Active confirmed 200720571 Problem CAD (coronary artery disease) I25.10 Active confirm ed 44025372 Problem Diabetes mellitus type 2 with complications E11.8 Active confirmed 270337574 Problem Vitamin D deficiency E55.9 Active confirmed 63889984 Problem B12 deficiency E53.8 Active confirmed 63129 4004 Problem Obesity E66.9 Active confirmed 310990607 ALLERGIES Allergen (clinical drug ingredient) Drug/Non Drug Allergy do cumented on EMR Reaction Allergy Type Onset Date Status cefuroxime Ceftin Rash Drug Allergy Active ENCOUNTERS from 1950 to 2021-06-13 Encounter Location Date Provider Diagnosis [address] [phone] [place] [address] Jun, Dylon Gibson IMMUNIZATIONS Vaccine Route Administration Date Status Influenza 18 yrs & older Flublok IM Intramuscular Sep 29, 2019 Administered Influenza (High Dose 65 & up) IM Intramuscular Oct 25, 2017 A dministered COVID-19 dose #1 given elsewhere Unspecified IM Intramuscular Ja n 2020 Administered Influenza (High Dose 65 & up) [...] Education Language: Question Answer Notes Languages spoken: Monegasque Baptism: Question Answer Notes Baptism 22 Congregational Sexual Hx: Question Answer Notes Had sex [...] Orally Once a day for 90 Active Glimepiride 2 MG TAKE ONE TABLET BY MOUTH TWO TIMES A DAY for 90 Active Carvedilol 12.5mg 1 tablet orally Twice a day for 90 day(s) Active Blood Glucose Test - as directed subcutaneously bid DX: E11.8 fo r 30 day(s) Jul, Active Invokana 300 MG 1 tablet Orally every morning for 90 day(s) Active Aspirin 325 MG 1 tablet Orally Once a day Active AREDS OTC Active Carvedilol 12.5mg 1 tablet orally Twice a day for 90 Active Glucophage 850 MG TAKE [...] Information RESULTS No Results REASON FOR VISIT PA Trulicity 3mg/0.5mL pen MEDICAL (GENERAL) HISTORY Type Description Date Medical [...] Medical History CKD, stage III Surgical History [id number] 07/07 007, 05/2018 Hospitalization History none Goals [...] orally Twice a day for 90 day(s) Lisinopril 20 MG 1 tablet Orally bid for 90 Invokana 300 MG 1 tablet Orally every morning for 90 day(s) Glimepiride 2 MG TAKE ONE TABLET BY MOUTH TWO TIMES A DAY for 90 Trulicity 1.5 MG/0.5ML INJECT THE CONTENTS OF [...] 90 Next Appt Details Provider Name:Dylon Gibson, 2021-08-30 0 9:15:00 AM, [address] [facility], , [place], [address], Insurance Providers Payer Name Payer Address Payer Phone Insured Name Patient Relati onship to Insured Coverage Start Date Coverage End Date [facility] [id number] [facility] [phone] REFUGIO MENDOZA self MEDICARE Part A and B [address] [facility] [place] [phone] [phone] REFUGIO MENDOZA self
--- OUTSIDE RECORDS SUMMARY | 2021-09-01 06:35 | CCD ---
Author Author Rafal Lamas MD [facility] Organization Rafal Lamas MD [facility] Address [address] [address] Phone Care Team Providers Care Lpn Home Health Name Role Phone Dylon Gibson MD PP [phone] Janette DO, Len Unavailable [phone] Reason for Referral No Reason for Referral [...] Evaluation 06/24/2021 9:15AM Rafal Lamas MD [facility] Assessments Includes: Assessments for all [...] Rafal Lamas MD, FACS Rafal Lamas MD [facility] 06/02/2021 10:23AM 10:57AM OCT RETINA Rafal Lamas MD [facility] 06/02/2021 10:23AM 10: 58AM 1 Year Follow-Up & Testing Len Carver MD [facility] 05/24/2021 12:13PM 1:18PM Insurance Includes: Active Insurance Policies Plan Name Member ID Group # Subscriber Relationship Effective Da pancho 1 - Medicare Part B [facility] ([place]) [id number] Iain zheng Self 2 - [employer] /PRIOR AUTHS NEEDED [id number] Iain Mendoza Self Advance Directives Includes: Current Advance DirectivesNo Advance Directives Recorded Health Concerns Includes: Active Health ConcernsNo Active Health Concerns Recorded Goals Includes: Active GoalsNo Active Goals Recorded Interventions Includes: Interventions for active GoalsNo Interventions Recorded Evaluations & Outcomes Includes: Evaluations & Outcomes for active GoalsNo Outcomes Recorded
[2021-09-01] MEDS ORDERED: LIDOCAINE 1% SDV 5ML VIAL As Ordered ONE (06:36)
[2021-09-01] MEDS ORDERED: DUOVISC (0.50ML VISCOAT/0.85ML PROVISC) OPHTH KIT As Ordered ONE (06:36)
--- OUTSIDE RECORDS SUMMARY | 2021-09-01 06:36 | CCD ---
Author Author [facility] Organization [facility] Address Unknown Phone Unavailable Care Team Providers Care Public Health Service Officer Name Role Phone ShwetawMariely PA Unavailable Unavailable Symenow, Mariely Muro PA Unavailable Unavailable Symenow, Mariely Muro PA Unavailable Unavailable Symenow, Mariely Muro PA Unavailable Unavailable Symenow, Mariely Muro PA Unavailable Unavailable Symenow, Mariely Muro PA Unavailable Unavailable Symenow, Mariely Muro PA Unavailable Unavailable Symenow, Mariely Jina PA Unavailable Unavailable Symenow, Mariely Forreste PA Unavailable Unavailable Symenow, Mariely Jina PA Unavailable Unavailable Symenow, Mariely Jina PA Unavailable Unavailable Symenow, Mariely Forreste PA Unavailable Unavailable Symenow, Mariely Jina PA Unavailable Unavailable Symenow, Mariely Jina PA Unavailable Unavailable Symenow, Mariely Jina PA Unavailable Unavailable Symenow, Mariely Jina PA Unavailable Unavailable Symenow, Mariely Jina PA Unavailable Unavailable Symenow, Mariely Jina PA Unavailable Unavailable Symenow, Mariely Jina PA Unavailable Unavailable Symenow, Mariely Jina PA Unavailable Unavailable Symenow, Mariely Jina PA Unavailable Unavailable Symenow, Mariely Jina PA Unavailable Unavailable Symenow, Mariely Jina PA Unavailable Unavailable Symenow, Mariely Jina PA Unavailable Unavailable Symenow, Mariely Jina PA Unavailable Unavailable Symenow, Mariely Jina PA Unavailable Unavailable Symenow, Mariely Jina PA Unavailable Unavailable Symenow, Mariely Jina PA Unavailable Unavailable Symenow, Mariely Jina PA Unavailable Unavailable Symenow, Mariely Jina PA Unavailable Unavailable Symenow, Mariely Jina PA Unavailable Unavailable Symenow, Mariely Jina PA Unavailable Unavailable Symenow, Mariely Jina PA Unavailable Unavailable Symenow, Mariely Jina PA Unavailable Unavailable Nicholas, Enma Meg PA Unavailable Unavailable Nicholas, Enma Meg PA Unavailable Unavailable Nicholas, Enma Meg PA Unavailable Unavailable Nicholas, Enma Meg PA Unavailable Unavailable Nicholas, Enma Meg PA Unavailable Unavailable Nicholas, Enma Meg PA Unavailable Unavailable Nicholas, Enma Meg PA Unavailable Unavailable Nicholas, Enma Meg PA Unavailable Unavailable Nicholas, Enma Meg PA Unavailable Unavailable Nicholas, Enma Meg PA Unavailable Unavailable Costa Iraheta, Crista Lyles MD, FACS Unavailable Unavailable Costa Iraheta, Crista Lyles MD, FACS Unavailable Unavailable Costa Iraheta, Crista Lyles MD, FACS Unavailable Unavailable Costa Iraheta, Crista Lyles MD, FACS Unavailable Unavailable Costa Iraheta, Crista Lyles MD, FACS Unavailable Unavailable Costa Iraheta, Crista Lyles MD, FACS Unavailable Unavailable Costa Iraheta, Crista Lyles MD, FACS Unavailable Unavailable Costa Iraheta, Crista Lyles MD, FACS Unavailable Unavailable Costa Iraheta, Crista Lyles MD, FACS Unavailable Unavailable Costa Iraheta, Crista Lyles MD, FACS Unavailable Unavailable Costa Iraheta, Crista Lyles MD, FACS Unavailable Unavailable Costa Iraheta, Crista Lyles MD, FACS Unavailable Unavailable Costa Iraheta, Crista Lyles MD, FACS Unavailable Unavailable Costa Iraheta, Crista Lyles MD, FACS Unavailable Unavailable Costa Iraheta, Crista Lyles MD, FACS Unavailable Unavailable Costa Iraheta, Crista Lyles MD, FACS Unavailable Unavailable Costa Iraheta, Crista Lyles MD, FACS Unavailable Unavailable Costa Iraheta, Crista Lyles MD, FACS Unavailable Unavailable Costa Iraheta, Crista Lyles MD, FACS Unavailable Unavailable Costa Iraheta, Crista Lyles MD, FACS Unavailable Unavailable Costa Iraheta, Crista Lyles MD, FACS Unavailable Unavailable Costa Iraheta, Crista Lyles MD, FACS Unavailable Unavailable Costa Iraheta, Crista Lyles MD, FACS Unavailable Unavailable Costa Iraheta, Crista Lyles MD, FACS Unavailable Unavailable Costa Iraheta, Crista Lyles MD, FACS Unavailable Unavailable Costa Iraheta, Crista Lyles MD, FACS Unavailable Unavailable Costa Iraheta, Crista Lyles MD, FACS Unavailable Unavailable Costa Iraheta, Crista Lyles MD, FACS Unavailable Unavailable Costa Iraheta, Crista Lyles MD, FACS Unavailable Unavailable Costa Iraheta, Crista Lyles MD, FACS Unavailable Unavailable Costa Iraheta, Crista Lyles MD, FACS Unavailable Unavailable Costa Iraheta, Crista Lyles MD, FACS Unavailable Unavailable Costa Iraheta, Crista Lyles MD, FACS Unavailable Unavailable Costa Iraheta, Crista Lyles MD, FACS Unavailable Unavailable Costa Iraheta, Crista Lyles MD, FACS Unavailable Unavailable Costa Iraheta, Crista Lyles MD, FACS Unavailable Unavailable Costa Iraheta, Crista Lyles MD, FACS Unavailable Unavailable Costa Iraheta, Crista Lyles MD, FACS Unavailable Unavailable Costa Iraheta, Crista Lyles MD, FACS Unavailable Unavailable SILVINO, A CHRISTINE DO Unavailable Unavailable SILVINO, A CHRISTINE DO Unavailable Unavailable SILVINO, A CHRISTINE DO Unavailable Unavailable SILVINO, A CHRISTINE DO Unavailable Unavailable SILVINO, A CHRISTINE DO Unavailable Unavailable SILVINO, A CHRISTINE DO Unavailable Unavailable SILVINO, A CHRISTINE DO Unavailable Unavailable SILVINO, A CHRISTINE DO Unavailable Unavailable SILVINO, A CHRISTINE DO Unavailable Unavailable SILVINO, A CHRISTINE DO Unavailable Unavailable SILVINO, A CHRISTINE DO Unavailable Unavailable SILVINO, A CHRISTINE DO Unavailable Unavailable SILVINO, A CHRISTINE DO Unavailable Unavailable SILVINO, A CHRISTINE DO Unavailable Unavailable SILVINO, A CHRISTINE DO Unavailable Unavailable SILVINO, A CHRISTINE DO Unavailable Unavailable SILVINO, A CHRISTINE DO Unavailable Unavailable SILVINO, A CHRISTINE DO Unavailable Unavailable SILVINO, A CHRISTINE DO Unavailable Unavailable SILVINO, A CHRISTINE DO Unavailable Unavailable SILVINO, A CHRISTINE DO Unavailable Unavailable SILVINO, A CHRISTINE DO Unavailable Unavailable Re-disclosure Warning The records that you are about to access may contain information from federally-assisted alcohol or drug abuse programs. If such information is present, then the following federally mandated warning applies: This information has been disclosed to you from records protected by federal confidentiality rules (42 CFR part 2). The federal rules prohibit you from making any further disclosure of this information unless further disclosure is expressly permitted by the written consent of the person to whom it pertains or as otherwise permitted by 42 CFR part 2. A general authorization for the release of medical or other information is NOT sufficient for this purpose. The Federal rules restrict any use of the information to criminally investigate or prosecute any alcohol or drug abuse patient.The records that you are about to access may contain highly sensitive health information, the redisclosure of which is protected by Article 27-F of the [facility] Public Health law. If you continue you may have access to information: Regarding HIV / AIDS; Provided by facilities licensed or operated by the [facility] Office of Mental Health; or Provided by the [facility] Office for People With Developmental Disabilities. If such information is present, then the following [facility] mandated warning applies: This information has been disclosed to you from confidential records which are protected by state law. State law prohibits you from making any further disclosure of this information without the specific written consent of the person to whom it pertains, or as otherwise permitted by law. Any unauthorized further disclosure in violation of state law may result in a fine or prison sentence or both. A general authorization for the release of medical or other information is NOT sufficient authorization for further disc losure. Family History Family Member Name Family Member Gender Family Member Status Date o f Status Description Data Source(s) Unknown Unknown Problem [facility] ([facility]) Unknown Male Problem [facility] ([facility]) Unknown Female Problem [facility] ([facility]) Encounters Encounter Providers Location Date Indications Data Source(s ) Unknown [address] [facility] [place] [address] 08/26/2021 12:00:00 AM EDT eCW1 ([facility]) Outpatient [address] [facility] [place] [address] 08/26/2021 12:00:00 AM EDT eCW1 ([facility]) Unknown [address] [facility] [place] [address] 08/19/2021 12:00:00 AM EDT eCW1 ([facility]) Unknown [address] [facility] [place] [address] 08/19/2021 12:00:00 AM EDT eCW1 ([facility]) Unknown [address] [facility] [place] [address] 06/07/2021 12:00:00 AM EDT eCW1 ([facility]) Outpatient<td ID="encounterTypeDescripti onID1">OCT RETINA</td><td></td><td>Rafal Lamas MD [facility]</td><td>06/02/2021</td><td>10:23AM</td><td>10:58AM</td><td></td> Rafal Lamas MD [facility] 06/02/2021 10:23:00 AM EDT - 06/02/2021 10:58:00 AM EDT [place] (Rafal Iraheta MD [facility]) Outpatient<td ID="encounterTypeDescripti onID0">TESTING - VISUAL FIELD & OCT</td><td>Christine Savage DO</td><td>Rafal Lamas MD [facility]</td><td>06/02/2021</td><td>10:23AM</td><td>10:57AM</td><td><content ID="encounterDiagnosisID0-0">Borderline Glaucoma Open Angle with Borderline Findings Both Eyes</content></td> Attender: CHRISTINE SAVAGE DOAttender: Rafal Iraheta MD, FACS Rafal Lamas MD [facility] 06/02/2021 10:23:00 AM EDT - 06/02/2021 10:57:00 AM EDT Borderline Glaucoma Open Angle with Bord martin Findings Both Eyes [place] (Rafal Iraheta MD [facility]) Borderline Glaucoma Open Angle with Bord martin Findings Both Eyes [place] [address] [facility] [place] [address] 05/30/2021 12:00:00 AM EDT eCW1 ([facility]) Outpatient<td ID="encounterTypeDescripti onID2">1 Year Follow-Up & Testing</td><td>Christine Savage DO</td><td>Rafal Lamas MD [facility]</td><td>05/24/2021</td><td>12:13PM</td><td>1:18PM</td><td></td> Attender: CHRISTINE Carver MD [facility] 05/24/2021 12:13:00 PM EDT - 05/24/2021 01:18:00 PM EDT [place] (Rafal carrillo MD [facility]) Out[place] [address] [facility] [place] [address] 04/05/2021 12:00:00 AM EDT eCW1 ([facility]) Unknown [address] [facility] [place] [address] 02/27/2021 12:00:00 AM EDT eCW1 ([facility]) Unknown [address] [facility] [place] [address] 01/10/2021 12:00:00 AM EST eCW1 ([facility]) Outpatient [address] [facility] [place] [address] 12/10/2020 12:00:00 AM EST eCW1 ([facility]) Unknown [address] [facility] [place] [address] 12/03/2020 12:00:00 AM EST eCW1 ([facility]) Unknown [address] [facility] [place] [address] 11/16/2020 12:00:00 AM EST eCW1 ([facility]) Outpatient Attender: Meg girard 11/12/2020 08:25:00 AM EST [facility] ([facility]) Unknown [address] [facility] [place] [address] 09/13/2020 12:00:00 AM EST eCW1 ([facility]) Outpatient Attender: Jina DELACRUZ Main Office 09/10/2020 08:45:00 AM EST MEDENT ([facility]) Immunizations Vaccine Date Status Description Data Source(s) COVID-19 VACCINE Moderna 12/29/2020 12:00:00 AM EST completed [facility] Vaccine Series Complete: YESThis Data wa s Submitted to [facility] Via [facility]. COVID-19 dose #1 given elsewhere Unspecified 12/01/2020 08:2 6:00 AM EST completed eCW1 ([facility]) COVID-19 dose #1 given elsewhere Unspecified 12/01/2020 08:2 6:00 AM EST completed eCW1 ([facility]) COVID-19 dose #1 given elsewhere Unspecified 12/01/2020 08:2 6:00 AM EST completed eCW1 ([facility]) COVID-19 dose #1 given elsewhere Unspecified 12/01/2020 08:2 6:00 AM EST completed eCW1 ([facility]) COVID-19 dose #1 given elsewhere Unspecified 12/01/2020 08:2 6:00 AM EST completed eCW1 ([facility]) COVID-19 dose #1 given elsewhere Unspecified 12/01/2020 08:2 6:00 AM EST completed eCW1 ([facility]) COVID-19 dose #1 given elsewhere Unspecified 12/01/2020 08:2 6:00 AM EST completed eCW1 ([facility]) COVID-19 dose #1 given elsewhere Unspecified 12/01/2020 08:2 6:00 AM EST completed eCW1 ([facility]) COVID-19 dose #1 given elsewhere Unspecified 12/01/2020 08:2 6:00 AM EST completed eCW1 ([facility]) COVID-19(given elsewhere) Unspecified 12/01/2020 08:26:00 AM EST co mpleted eCW1 ([facility]) COVID-19 VACCINE Moderna 11/29/2020 12:00:00 AM EST completed [facility] Vaccine Series Complete: NOThis Data was Submitted to [facility] Via [employer]. INFLUENZA VIRUS VACCINE QUADRIVALENT 2019- (6 MOS AN D UP) 08/02/2020 12:00:00 AM EDT completed [facility] Medications Medication Brand Name Start Date Product Form Dose Route Admi nistrative Instructions Pharmacy Instructions Status Indications Reaction Description Data Source(s) 1 % 08/19/2021 12:00:00 AM EDT drops,suspension 10 INSTILL ONE DROP FOUR TIMES A DAY IN THE RIGHT EYE START AFTER SURGERY INSTILL ONE DROP FOUR TIMES A DAY IN THE RIGHT EYE START AFTER SURGERY SOLD: 08/19/2021 [facility] 0.5 % 08/14/2021 12:00:00 AM EDT drops 5 INSTILL ONE DROP FOUR TIMES A DAY IN THE RIGHT EYE START 3 DAYS BEFORE SURGERY INSTILL ONE DROP FOUR TIMES A DAY IN THE RIGHT EYE START 3 DAYS BEFORE SURGERY SOLD: 08/19/2021 [facility] Polymyxin B 85145 UNT/ML / Trimethoprim 1 MG/ML Ophthalmic Solution 10,000 unit- 1 mg/mL POLYMYXIN B SULF/TRIMETHOPRIM 08/12/2021 12:00:00 AM EDT drops 1 0 INSTILL ONE DROP FOUR TIMES A DAY IN THE RIGHT EYE START 3 DAYS PRIOR TO SURGERY INSTILL ONE DROP FOUR TIMES A DAY IN THE RIGHT EYE START 3 DAYS PRIOR TO SURGERY SOLD: 08/19/2021 [facility] 240 mcg/0.7 mL 07/26/2021 12:00:00 AM EDT syringe 0 INJECT INTRAMUSCULARLY DIRECTED INJECT INTRAMUSCULARLY DIRECTED SOLD: 07/26/2021 [facility] BLOOD SUGAR DIAGNOSTIC 04/18/2021 12:00:00 AM EDT strip 50 DIRECTED TWO TIMES A DAY DIRECTED TWO TIMES A DAY SOLD: 07/08/2021 [facility] BLOOD SUGAR DIAGNOSTIC 04/18/2021 12:00:00 AM EDT strip 50 DIRECTED TWO TIMES A DAY DIRECTED TWO TIMES A DAY SOLD: 05/15/2021 [facility] BLOOD SUGAR DIAGNOSTIC 04/18/2021 12:00:00 AM EDT strip 50 DIRECTED TWO TIMES A DAY DIRECTED TWO TIMES A DAY SOLD: 06/11/2021 [facility] BLOOD SUGAR DIAGNOSTIC 04/18/2021 12:00:00 AM EDT strip 50 DIRECTED TWO TIMES A DAY DIRECTED TWO TIMES A DAY SOLD: 08/02/2021 [facility] BLOOD SUGAR DIAGNOSTIC 04/18/2021 12:00:00 AM EDT strip 50 DIRECTED TWO TIMES A DAY DIRECTED TWO TIMES A DAY SOLD: 04/20/2021 [facility] 3 mg/0.5 mL 04/06/2021 12:00:00 AM EDT pen injector 2 INJECT 0.5ML SUBCUTANEOUSLY WEEKLY INJECT 0.5ML SUBCUTANEOUSLY WEEKLY SOLD: 05/07/2021 [facility] 3 mg/0.5 mL 04/06/2021 12:00:00 AM EDT pen injector 2 INJECT 0.5ML SUBCUTANEOUSLY WEEKLY INJECT 0.5ML SUBCUTANEOUSLY WEEKLY SOLD: 04/08/2021 [facility] 3 mg/0.5 mL 04/06/2021 12:00:00 AM EDT pen injector 2 INJECT 0.5ML SUBCUTANEOUSLY WEEKLY INJECT 0.5ML SUBCUTANEOUSLY WEEKLY SOLD: 06/17/2021 [facility] BLOOD SUGAR DIAGNOSTIC 04/06/2021 12:00:00 AM EDT strip 50 DIRECTED TWO TIMES A DAY DIRECTED TWO TIMES A DAY SOLD: 04/08/2021 [facility] One touch ultra blue UNK 04/05/2021 12:00:00 AM EDT active One touch ultra blue eCW1 ([facility]) One touch ultra blue UNK 04/05/2021 12:00:00 AM EDT active One touch ultra blue eCW1 ([facility]) One touch ultra blue UNK 04/05/2021 12:00:00 AM EDT active One touch ultra blue eCW1 ([facility]) One touch ultra blue UNK 04/05/2021 12:00:00 AM EDT active One touch ultra blue eCW1 ([facility]) One touch ultra blue UNK 04/05/2021 12:00:00 AM EDT active One touch ultra blue eCW1 ([facility]) One touch ultra blue UNK 04/05/2021 12:00:00 AM EDT active One touch ultra blue eCW1 ([facility]) One touch ultra blue UNK 04/05/2021 12:00:00 AM EDT active One touch ultra blue eCW1 ([facility]) glimepiride 2 MG Oral Tablet GLIMEPIRIDE 01/10/2021 12:00:00 AM EST ta blet 60 TAKE ONE TABLET BY MOUTH TWICE A DAY TAKE ONE TABLET BY MOUTH TWICE A DAY SOLD: 01/10/2021 [facility] glimepiride 2 MG Oral Tablet Glimepiride 09/09/2020 12:00:00 AM EST ORAL active [facility] ([facility]) glimepiride 2 MG Oral Tablet GLIMEPIRIDE 07/09/2020 12:00:00 AM EDT ta blet 60 TAKE ONE TABLET BY MOUTH TWICE A DAY TAKE ONE TABLET BY MOUTH TWICE A DAY SOLD: 12/05/2020 [facility] glimepiride 2 MG Oral Tablet GLIMEPIRIDE 07/09/2020 12:00:00 AM EDT ta blet 60 TAKE ONE TABLET BY MOUTH TWICE A DAY TAKE ONE TABLET BY MOUTH TWICE A DAY SOLD: 10/05/2020 [facility] 2 mg 07/09/2020 12:00:00 AM EDT tablet 60 TAKE ONE TABLET BY MOUTH TWICE A DAY TAKE ONE TABLET BY MOUTH TWICE A DAY SOLD: 08/02/2020 [facility] glimepiride 2 MG Oral Tablet GLIMEPIRIDE 07/09/2020 12:00:00 AM EDT ta blet 60 TAKE ONE TABLET BY MOUTH TWICE A DAY TAKE ONE TABLET BY MOUTH TWICE A DAY SOLD: 11/04/2020 [facility] glimepiride 2 MG Oral Tablet GLIMEPIRIDE 07/09/2020 12:00:00 AM EDT ta blet 60 TAKE ONE TABLET BY MOUTH TWICE A DAY TAKE ONE TABLET BY MOUTH TWICE A DAY SOLD: 09/03/2020 [facility] glimepiride 2 MG Oral Tablet GLIMEPIRIDE 07/09/2020 12:00:00 AM EDT ta blet 60 TAKE ONE TABLET BY MOUTH TWICE A DAY TAKE ONE TABLET BY MOUTH TWICE A DAY SOLD: 07/09/2020 [facility] Insurance Providers Payer name Policy type / Coverage type Policy ID Covered democrat ID Covered democrat's relationship to lawson Policy Lawson Plan Information Medicare Part B Medicare Primary [id number] Self [id number] Medicare Part B Medicare Primary [id number] Self [id number] Medicare Part B Medicare Primary [id number] Self [id number] [facility] Commercial [id number] Self [id number] Medicare Part B of [place] Other 0 [id number] Self 0 [employer] [place] Other 0 [id number] Self 0 Medicare Part B of [facility] Other 0 [id number] Self 0 [employer] [place] Other 0 [id number] Self 0 Medicare Part B of [facility] Other 0 [id number] Self 0 [employer] [place] Other 0 [id number] Self 0 Medicare Part B of [facility] Other 0 [id number] Self 0 [employer] [place] Other 0 [id number] Self 0 Medicare Part B of [facility] Other 0 [id number] Self 0 [employer] [place] Other 0 [id number] Self 0 Medicare Part B of [facility] Other 0 [id number] Self 0 [employer] [place] Other 0 [id number] Self 0 Medicare Part B of [facility] Other 0 [id number] Self 0 [employer] [place] Other 0 [id number] Self 0 Medicare Part B of [facility] Other 0 [id number] Self 0 [employer] [place] Other 0 [id number] Self 0 Medicare Part B of [facility] Other 0 [id number] Self 0 [employer] [place] Other 0 [id number] Self 0 Medicare Part B of [facility] Other 0 [id number] Self 0 [employer] [place] Other 0 [id number] Self 0 Medicare Part B of [facility] Other 0 [id number] Self 0 [employer] [place] Other 0 [id number] Self 0 Medicare Part B of [facility] Other 0 [id number] Self 0 [employer] [place] Other 0 [id number] Self 0 Medicare Part B of [facility] Other 0 [id number] Self 0 [employer] [place] Other 0 [id number] Self 0 Medicare Part B of [facility] Other 0 [id number] Self 0 UMR O [id number] S [id number] MEDICARE C [id number] S [id number] ANSI-Medicare Part B [id number] ANSI-Commercial [id number] ANSI-Commercial [id number] [employer] [facility] Ppo Medigap Part B [id number] Self [id number] r Medigap Part B [id number] Self [id number] Medicare (Part B) Medicare Primary [id number] Self [id number] [employer] [facility] Ppo Medigap Part B [id number] Self [id number] r Medigap Part B [id number] Self [id number] Medicare (Part B) Medicare Primary [id number] Self [id number] [employer] Medigap Part B [id number] Self [id number] ANSI-Medicare Part B [id number] ANSI-Commercial [id number] ANSI-Commercial [id number] ANSI-Medicare Part B [id number] ANSI-Commercial [id number] ANSI-Commercial [id number] ANSI-Medicare Part B [id number] ANSI-Commercial [id number] ANSI-Commercial [id number] ANSI-Medicare Part B [id number] ANSI-Commercial [id number] ANSI-Commercial [id number] ANSI-Commercial [id number] ANSI-Medicare Part B [id number] ANSI-Commercial [id number] [facility] [facility] [id number] Self [id number] r [facility] [id number] 50.0 Self [id number] Medicare (Part B) Medicare Primary [id number] Self [id number] [facility] [facility] o Medigap Part B [id number] Self [id number] r Medigap Part B [id number] 50.0 Self [id number] Medicare (Part B) Medicare Primary [id number] Self [id number] ANSI-Commercial [id number] ANSI-Medicare Part B [id number] ANSI-Commercial [id number] ANSI-Commercial [id number] ANSI-Commercial [id number] ANSI-Medicare Part B [id number] ANSI-Medicare Part B [id number] ANSI-Commercial [id number]-m810-94lz-7u21-0768e1w6tzg5 ANSI-Commercial [id number]-rxxh-[id number] ANSI-Medicare Part B [id number] ANSI-Commercial 59k5zaj8-z0mr-7osv-[id number] 77m7acv2-i7io-6eef-23a6-0xydx87e52g1 ANSI-Commercial [id number]-234y-[id number] [id number] MEDICARE [id number] A [employer] [id number] SP [id number] [facility] Part B [id number] Self [id number] Medicare [place] Primary [id number] Self 0 [id number] [place] [facility] o [facility] Part B [id number] Self [id number] Medicare (Part B) Medicare Primary [id number] Self 0 [id number] [facility] [id number] Self [id number] [place] [facility] [id number] Self [id number] Medicare (Part B) Medicare Primary [id number] Self 0 [id number] Medicare (Part B) Medicare Primary [id number] Self [employer] [id number] Self [place] [employer] [id number] Self Medicare Part B Medicare Primary [id number] Self MEDICARE [id number] SP [id number] [id number] [facility] [id number] SP [id number] [facility] [id number] SP [id number] [employer] [place] Other 0 [id number] Self 0 Problems, Conditions, and Diagnoses Code Display Name Description Problem Type Effective Dates Data Source(s) D47.2 [id number] MGUS (monoclonal gammopathy of unknown si gnificance) Problem 08/26/2021 12:00:00 AM EDT eCW1 (Formerly [facility]) Surgeries/Procedures Procedure Description Date Indications Data Source(s) Surgical / procedural history Surgical / procedural history 05/24/2021 12:00:00 AM EDT [place] (Rafal Iraheta MD [facility]) Duplex Scan Extracranial Arteries, Follow-Up Or Limited Stud y 03/01/2021 12:00:00 AM EDT [facility] ([facility]) Duplex Scan Extracranial Arteries, Follow-Up Or Limited Stud y 03/01/2021 12:00:00 AM EDT MEDENT ([facility]) ECHO TTHRC R-T 2D W/WOM-MODE COMPL SPEC&COLR DOP 10/19 12:00:00 AM EST [facility] ([facility]) ECG ROUTINE ECG W/LEAST 12 LDS W/I&R 09/10/2020 12:00: 00 AM EST MED[facility] ([facility]) Results ID Date Data Source [id number] 03/01/2021 02:54:00 PM EDT [facility] ([facility]) Name Value Range Interpretation Code Description Data Felecia rce(s) Supporting Document(s) Carotid Ultrasound Left Laboratory test result MEDENT ([facility]) ID Date Data Source [id number] 12/06/2020 11:25:00 AM EST [facility] ([facility]) Name Value Range Interpretation Code Description Data Felecia rce(s) Supporting Document(s) Magnesium Level 2.4 1.8-2.4 [facility] ([facility]) Hemoglobin A1c/Hemoglobin.total in Blood 7.2 MEDENT ([facility]) ID Date Data Source [id number] 12/06/2020 11:25:00 AM EST [facility] ([facility]) Name Value Range Interpretation Code Description Data Felecia rce(s) Supporting Document(s) Cholesterol 145 [facility] ([facility]) Triglycerides 262 [facility] ([facility]) Cholesterol in LDL [Mass/volume] in Serum or Plasma by calculation 63 [facility] ([facility]) HDL 30 [facility] ([facility] Chol/HDL Ratio 4.833 [facility] ([facility]) ID Date Data Source [id number] 12/06/2020 11:25:00 AM EST [facility] ([facility]) Name Value Range Interpretation Code Description Data Felecia rce(s) Supporting Document(s) Free T4 0.74 [facility] ([facility] Thyroid Stimulating Hormone 2.380 ME DENT ([facility]) ID Date Data Source [id number] 12/06/2020 11:25:00 AM EST [facility] ([facility]) Name Value Range Interpretation Code Description Data Felecia rce(s) Supporting Document(s) Albumin [Mass/volume] in Serum or Plasma 4.2 [facility] ([facility]) Calcium [Mass/volume] in Serum or Plasma 10.2 [facility] ([facility]) Alanine aminotransferase [Enzymatic activity/volume] in Serum or Pl asma 24 MED[facility] ([facility]) Carbon dioxide, total [Moles/volume] in Serum or Plasma 29 [facility] ([facility]) Chloride [Moles/volume] in Serum or Plasma 107 [facility] ([facility]) Alkaline phosphatase [Enzymatic activity/volume] in Serum or Plasma 5 7 [facility] ([facility]) Potassium [Moles/volume] in Serum or Plasma 5.1 [facility] ([facility]) Sodium 143 [facility] ([facility] Protein [Mass/volume] in Serum or Plasma 7.7 [facility] ([facility]) Urea nitrogen [Mass/volume] in Serum or Plasma 20 [facility] ([facility]) Aspartate aminotransferase [Enzymatic activity/volume] in Serum or Plasma 12 [facility] ([facility]) Creatinine For GFR 1.27 [facility] ([facility]) Glucose 156 70-100 [facility] ([facility]) ID Date Data Source [id number] 11/12/2020 12:00:00 AM EST [facility] Name Value Range Interpretation Code Description Data Felecia rce(s) Supporting Document(s) SARS coronavirus 2 [facility] Negative [facility] This lab was ordered by [facility] and reported by [facility]. ID Date Data Source [id number] 07/05/2020 09:02:00 AM EDT [facility] ([facility]) Name Value Range Interpretation Code Description Data Felecia rce(s) Supporting Document(s) Hemoglobin A1c/Hemoglobin.total in Blood 9.3 [facility] ([facility]) ID Date Data Source [id number] 07/05/2020 09:02:00 AM EDT [facility] ([facility]) Name Value Range Interpretation Code Description Data Felecia rce(s) Supporting Document(s) Free T4 0.80 [facility] ([facility] Magnesium Level 2.5 1.8-2.4 [facility] ([facility]) Thyroid Stimulating Hormone 2.870 ME DENT ([facility]) ID Date Data Source [id number] 07/05/2020 09:02:00 AM EDT [facility] ([facility]) Name Value Range Interpretation Code Description Data Felecia rce(s) Supporting Document(s) Triglycerides 263 [facility] ([facility]) Cholesterol 122 [facility] ([facility]) HDL 28 [facility] ([facility] Cholesterol in LDL [Mass/volume] in Serum or Plasma by calculation 41 [facility] ([facility]) Chol/HDL Ratio 4.357 [facility] ([facility]) ID Date Data Source [id number] 07/05/2020 09:02:00 AM EDT [facility] ([facility]) Name Value Range Interpretation Code Description Data Felecia rce(s) Supporting Document(s) Albumin [Mass/volume] in Serum or Plasma 4.1 [facility] ([facility]) Carbon dioxide, total [Moles/volume] in Serum or Plasma 30 [facility] ([facility]) Alanine aminotransferase [Enzymatic activity/volume] in Serum or Pl asma 25 [facility] ([facility]) Calcium [Mass/volume] in Serum or Plasma 9.4 [facility] ([facility]) Potassium [Moles/volume] in Serum or Plasma 4.8 [facility] ([facility]) Alkaline phosphatase [Enzymatic activity/volume] in Serum or Plasma 5 9 [facility] ([facility]) Chloride [Moles/volume] in Serum or Plasma 106 [facility] ([facility]) Aspartate aminotransferase [Enzymatic activity/volume] in Serum or Plasma 26 [facility] ([facility]) Protein [Mass/volume] in Serum or Plasma 7.6 [facility] ([facility]) Sodium 138 [facility] Creatinine For GFR 1.26 [facility]) Glucose 194 70-100 [facility] Urea nitrogen [Mass/volume] in Serum or Plasma 17 [facility] ([facility]) Procedure Social History Code Duration Value Status Description Data Source(s ) Smoking 08/26/2021 12:00:00 AM EDT Former Smoker completed Former Smoker eCW1 (Formerly [facility]) Smoking 08/26/2021 12:00:00 AM EDT Former Smoker completed Former Smoker eCW1 (Formerly [facility]) Smoking 06/15/2021 03:25:39 PM EDT Ex-smoker (finding) complet ed Ex-smoker (finding) [place] (Rafal Iraheta MD [facility]) Smoking 06/15/2021 03:25:16 PM EDT Ex-smoker (finding) complet ed Ex-smoker (finding) [place] (Rafal Iraheta MD [facility]) Smoking 06/15/2021 03:24:52 PM EDT Ex-smoker (finding) complet ed Ex-smoker (finding) [place] (Rafal Iraheta MD [facility]) Smoking 06/15/2021 03:24:15 PM EDT Ex-smoker (finding) complet ed Ex-smoker (finding) [place] (Rafal Iraheta MD [facility]) Smoking 06/15/2021 03:23:52 PM EDT Ex-smoker (finding) complet ed Ex-smoker (finding) [place] (Rafal Iraheta MD [facility]) Smoking 06/15/2021 03:23:28 PM EDT Ex-smoker (finding) complet ed Ex-smoker (finding) [place] (Rafal Iraheta MD [facility]) Smoking 06/15/2021 03:23:06 PM EDT Ex-smoker (finding) complet ed Ex-smoker (finding) [place] (Rafal Iraheta MD [facility]) Smoking 06/15/2021 03:22:01 PM EDT Ex-smoker (finding) complet ed Ex-smoker (finding) [place] (Rafal Iraheta MD [facility]) Smoking 06/15/2021 03:21:36 PM EDT Ex-smoker (finding) complet ed Ex-smoker (finding) [place] (Rafal Iraheta MD [facility]) Smoking 04/05/2021 12:00:00 AM EDT Former Smoker completed Former Smoker eCW1 (Formerly [facility]) Smoking 04/05/2021 12:00:00 AM EDT Former Smoker completed Former Smoker eCW1 ([facility]ly [facility]) Smoking 04/05/2021 12:00:00 AM EDT Former Smoker completed Former Smoker eCW1 ([facility]ly [facility]) Smoking 04/05/2021 12:00:00 AM EDT Former Smoker completed Former Smoker eCW1 ([facility]) Smoking 04/05/2021 12:00:00 AM EDT Former Smoker completed Former Smoker eCW1 ([facility]ly [facility]) Smoking 12/10/2020 12:00:00 AM EST Former Smoker completed Former Smoker eCW1 ([facility]) Smoking 12/10/2020 12:00:00 AM EST Former Smoker completed Former Smoker eCW1 ([facility]) Smoking 12/10/2020 12:00:00 AM EST Former Smoker completed Former Smoker eCW1 ([facility]ly [facility]) Smoking 09/10/2020 12:00:00 AM EST Patient is a former smoker completed Patient is a former smoker [facility] ([facility]) Vital Signs ID Date Data Source UNK Name Value Range Interpretation Code Description Data Source(s) Body weight 240.4 [lb_av] 240.4 [lb_av] eCW1 ([facility]) Body weight 109.04 kg 109.04 kg eCW1 ([facility]) Body height 72 [in_i] 72 [in_i] eCW1 ([facility]) Body mass index (BMI) [Ratio] 32.60 kg/m2 32.60 kg/m2 eCW1 ([facility]) Heart rate 67 /min 67 /min eCW1 ([facility]) Respiratory rate 20 /min 20 /min eCW1 ([facility]) Body temperature 97.0 [degF] 97.0 [degF] eCW1 ( [facility]) Systolic blood pressure 128 mm[Hg] 128 mm[Hg] e CW1 ([facility]) Diastolic blood pressure 78 mm[Hg] 78 mm[Hg] eCW1 ([facility]) Body weight 242.0 [lb_av] 242.0 [lb_av] eCW1 ([facility]) Body height 72 [in_i] 72 [in_i] eCW1 ([facility]) Body mass index (BMI) [Ratio] 32.82 kg/m2 32.82 kg/m2 eCW1 ([facility]) Heart rate 66 /min 66 /min eCW1 ([facility]) Respiratory rate 20 /min 20 /min eCW1 ([facility]) Body temperature 97.0 [degF] 97.0 [degF] eCW1 ( [facility]) Systolic blood pressure 118 mm[Hg] 118 mm[Hg] e CW1 ([facility]) Diastolic blood pressure 62 mm[Hg] 62 mm[Hg] eCW1 ([facility]) Systolic blood pressure 160 mm[Hg] 160 mm[Hg] M EDENT ([facility]) Diastolic blood pressure 80 mm[Hg] 80 mm[Hg] MED[facility] ([facility]) Heart rate 59 /min 59 /min [facility] ([facility] Body temperature 91.8 [degF] 91.8 [degF] MED[facility] ([facility]) Body height 72 [in_i] 72 [in_i] [facility] ([facility] 6'0" Body weight 241.2 [lb_av] 241.2 [lb_av] eCW1 ([facility]) Body height 72 [in_i] 72 [in_i] eCW1 ([facility]) Body mass index (BMI) [Ratio] 32.71 kg/m2 32.71 kg/m2 eCW1 ([facility]) Heart rate 72 /min 72 /min eCW1 ([facility]) Respiratory rate 20 /min 20 /min eCW1 ([facility]) Body temperature 96.5 [degF] 96.5 [degF] eCW1 ( [facility]) Systolic blood pressure 128 mm[Hg] 128 mm[Hg] e CW1 ([facility]) Diastolic blood pressure 78 mm[Hg] 78 mm[Hg] eCW1 ([facility]) Systolic blood pressure 102 mm[Hg] 102 mm[Hg] M EDENT ([facility]) Diastolic blood pressure 73 mm[Hg] 73 mm[Hg] MEDENT ([facility]) Heart rate 62 /min 62 /min MEDENT ([facility]) Respiratory rate 18 /min 18 /min MEDENT ( [facility]) Oxygen saturation in Arterial blood by Pulse oximetry 98 % 98 % MEDENT ([facility]) Body temperature 97.9 [degF] 97.9 [degF] MEDENT ([facility]) Body weight 235.00 [lb_av] 235.00 [lb_av] MEDEN T ([facility]) Body height 72 [in_i] 72 [in_i] MEDENT ([facility]) 6'0" Body mass index (BMI) [Ratio] 31.9 kg/m2 31.9 k g/m2 MEDENT ([facility]) Body weight 234.00 [lb_av] 234.00 [lb_av] MEDEN T ([facility]) Body height 73 [in_i] 73 [in_i] MEDENT ([facility]) 6'1" Body mass index (BMI) [Ratio] 30.9 kg/m2 30.9 k g/m2 MEDENT ([facility]) Heart rate 64 /min 64 /min MED[facility] ([facility]) Regular Respiratory rate 16 /min 16 /min MEDENT ( [facility]) Systolic blood pressure 126 mm[Hg] 126 mm[Hg] M EDENT ([facility]) sitting, large cuff Diastolic blood pressure 74 mm[Hg] 74 mm[Hg] MEDENT ([facility]) sitting, large cuff Systolic blood pressure 128 mm[Hg] 128 mm[Hg] M EDENT ([facility]) sitting Diastolic blood pressure 74 mm[Hg] 74 mm[Hg] MEDENT ([facility]) sitting Patient Treatment Plan of Care Planned Activity Planned Date Details Description Data Source (s) One touch ultra blue 04/05/2021 12:00:00 AM EDT eCW1 ([facility]) One touch ultra blue 04/05/2021 12:00:00 AM EDT eCW1 ([facility]) One touch ultra blue 04/05/2021 12:00:00 AM EDT eCW1 ([facility]) One touch ultra blue 04/05/2021 12:00:00 AM EDT eCW1 ([facility]) One touch ultra blue 04/05/2021 12:00:00 AM EDT eCW1 ([facility])
[2021-09-01] MEDS ORDERED: LR 1,000 ML IV SCH (07:00)
[2021-09-01] MEDS ORDERED: MAXITROL OPHTH SUSP 5 ML As Ordered ONE (07:18)
[2021-09-01] MEDS ORDERED: fentaNYL 100 MCG/2 ML INJECTION (J3010) As Ordered ONE (07:24)
[2021-09-01] MEDS ORDERED: MIDAZOLAM INJ 2MG/2ML VIAL (J2250 PER 1MG) As Ordered ONE (07:24)
[2021-09-01 10:06] VITALS: BP 124/67
--- NOTE | 2021-09-01 15:36 | ROOPDOC ---
[facility] Report Of Operation Report of Operation DATE OF PROCEDURE: 09/01/21 PREPROCEDURE DIAGNOSES: Cataract right eye. POSTPROCEDURE DIAGNOSES: Same. PROCEDURE PERFORMED: Cataract extraction with intraocular lens implantation right eye. SURGEON: Varinder Heard MD [employer] ARCHITECT: None ANESTHESIA: Local ESTIMATED BLOOD LOSS: None. COMPLICATIONS: None. SPECIMENS REMOVED: None DESCRIPTION OF PROCEDURE: The patient was brought to the operating room and prepped and draped in the usual sterile fashion and an eyelid speculum was inserted in the right eye. A paracentesis was made and the anterior chamber was inflated with non-preserved lidocaine. This was followed by injection of Viscoat. A groove was made in the temporal clear cornea which was tunneled forward with the crescent blade and the anterior chamber was entered with a 2.75 keratome. The cystotome was used to make an incision in the center of the capsule and a continuous curvilinear capsulorhexis was created. The lens was hydrodissected until it was found to rotate freely within the capsular bag. Phacoemulsification was then used to remove the lens in its entirety. Irrigation and aspiration were used to remove residual cortical material. There was some pupillary constriction at this point. The anterior chamber and capsular bag were reinflated with Provisc and a 20.5 diopter SN60AT lens was injected into the capsular bag using the [place] injector. The lens was dialed into place using the [place] hook. Irrigation and aspiration were used to remove residual viscoelastic. The wound was stromally hydrated until was found to be watertight and the eye was in an appropriate pressure. The eyelid speculum was removed from the eye and Maxitrol drops were placed over the right eye. The patient was transferred to the recovery room in stable condition and will follow up tomorrow. The total CDE was 26.03. VARINDER HEARD MD Sep 01, 2021 15:36
== END 2021-09-01 10:10 | disposition home or self-care (01) ==
LOC: M SDC 06:29
PROVIDERS: ATTEND Ophthalmology
DX: H25.11 Age-related nuclear cataract, right eye (principal); I25.10 Atherosclerotic heart disease of native coronary artery without angina pectoris; I25.2 Old myocardial infarction; Z95.1 Presence of aortocoronary bypass graft; I13.0 Hypertensive heart and chronic kidney disease with heart failure and stage 1 through stage 4 chronic kidney disease, or unspecified chronic kidney disease; E11.21 Type 2 diabetes mellitus with diabetic nephropathy; I69.398 Other sequelae of cerebral infarction; K21.00 Gastro-esophageal reflux disease with esophagitis, without bleeding; E78.2 Mixed hyperlipidemia; E53.8 Deficiency of other specified B group vitamins; Z86.79 Personal history of other diseases of the circulatory system; H40.9 Unspecified glaucoma; I50.42 Chronic combined systolic (congestive) and diastolic (congestive) heart failure; N18.30 Chronic kidney disease, stage 3 unspecified; D47.2 Monoclonal gammopathy; Z87.891 Personal history of nicotine dependence; Z79.899 Other long term (current) drug therapy; Z79.82 Long term (current) use of aspirin; Z79.84 Long term (current) use of oral hypoglycemic drugs; Z79.02 Long term (current) use of antithrombotics/antiplatelets; Z88.1 Allergy status to other antibiotic agents
CPT/HCPCS: 66984; J2250; J3010; V2632

== ENCOUNTER → 2021-12-29 | Outpatient (CLI) | payer MEDICARE, OTHER ==
[~2021-12-29] MED LIST changes: -CYCLOPENTOLATE 1% OPHTH SOLN 2 ML BTL OD SCH; -FLURBIPROFEN 0.03% OPHTH SOLN 2.5 ML OD SCH; -PHENYLEPHRINE 2.5% OPHTH SOL 2ML OD SCH; -PHENYLEPHRINE HCL 10 % OPHTH. SOL 5ML OD ONE; -TETRACAINE 0.5% OPHTH SOLN 4ML OD SCH
[2021-12-29 12:59] LABS: BASO % 0.5 % (0.0-1.0); EOS # 0.2 10^3/uL (0.0-0.5); EOS % 2.3 % (0.0-3.0); HEMATOCRIT 48.9 % (42.0-52.0); LYMPH # 1.1 10^3/uL (1.5-5.0); MEAN CORPUSCULAR HEMOGLOBIN 30.4 pg (27.0-33.0); MEAN CORPUSCULAR HGB CONC 32.7 g/dl (32.0-36.5); MONO # 0.6 10^3/uL (0.0-0.8); MONO % 7.4 % (2.0-8.0); NEUTROPHILS # 6.5 10^3/uL (1.5-8.5); NEUTROPHILS % 76.7 % (36.0-66.0); PLATELET COUNT, AUTOMATED 200 10^3/uL (150-450); RED BLOOD COUNT 5.26 10^6/uL (4.30-6.10); WHITE BLOOD COUNT 8.4 10^3/uL (4.0-10.0)
[2021-12-29 13:27] LABS: ALBUMIN 4.3 GM/DL (3.2-5.2); ALT/SGPT 19 U/L (12-78); BILIRUBIN,TOTAL 0.5 MG/DL (0.2-1.0); BLOOD UREA NITROGEN 20 MG/DL (7-18); CALCIUM LEVEL 10.1 MG/DL (8.8-10.2); CARBON DIOXIDE LEVEL 27 MEQ/L (21-32); CHLORIDE LEVEL 106 MEQ/L (98-107); CREATININE FOR GFR 1.07 MG/DL (0.70-1.30); GLOMERULAR FILTRATION RATE > 60.0 (>42); GLUCOSE, FASTING 126 MG/DL (70-100); MAGNESIUM LEVEL 2.2 MG/DL (1.8-2.4); NT-PRO BNP 177 PG/ML (<125); POTASSIUM SERUM 4.8 MEQ/L (3.5-5.1); SODIUM LEVEL 140 MEQ/L (136-145); TOTAL PROTEIN 7.6 GM/DL (6.4-8.2)
[2021-12-29 13:30] LABS: PTH INTACT 30.2 PG/ML (18.5-88.0); VITAMIN B12 LEVEL 865 PG/ML (247-911)
[2021-12-29 13:33] LABS: CREATININE, URINE 98.8 MG/DL; MALB URINE SIEMENS 16.8 MG/L
[2021-12-29 13:34] LABS: HEMOGLOBIN A1c 6.7 %
[2021-12-31 07:08] LABS: FREE KAPPA LIGHT CHAINS SERUM 24.6 mg/L (3.3-19.4); FREE KAPPA LIGHT CHAINS URINE 20.94 mg/L (0.63-113.79); FREE LAMBDA LIGHT CHAINS SERUM 41.5 mg/L (5.7-26.3); FREE LAMBDA LIGHT CHAINS URINE 40.44 mg/L (0.47-11.77); KAPPA/LAMBDA RATIO SERUM 0.59 (0.26-1.65); KAPPA/LAMBDA RATIO URINE 0.52 (1.03-31.76)
== END ==
LOC: M PLALAB 08:10
PROVIDERS: ATTEND Family Medicine
DX: D47.2 Monoclonal gammopathy (principal); E53.8 Deficiency of other specified B group vitamins; N18.30 Chronic kidney disease, stage 3 unspecified; E11.8 Type 2 diabetes mellitus with unspecified complications

== ENCOUNTER → 2022-05-31 | Outpatient (CLI) | payer MEDICARE, OTHER ==
[2022-05-31 11:48] LABS: BASO % 0.4 % (0.0-1.0); EOS # 0.2 10^3/uL (0.0-0.5); EOS % 2.5 % (0.0-3.0); HEMATOCRIT 44.2 % (42.0-52.0); HEMOGLOBIN 14.7 g/dl (13.5-17.5); LYMPH # 1.3 10^3/uL (1.5-5.0); LYMPH % 16.8 % (24.0-44.0); MEAN CORPUSCULAR HEMOGLOBIN 30.6 pg (27.0-33.0); MEAN CORPUSCULAR HGB CONC 33.3 g/dl (32.0-36.5); MEAN CORPUSCULAR VOLUME 91.9 fl (80.0-96.0); MONO # 0.6 10^3/uL (0.0-0.8); MONO % 7.7 % (2.0-8.0); NEUTROPHILS # 5.5 10^3/uL (1.5-8.5); NEUTROPHILS % 72.2 % (36.0-66.0); PLATELET COUNT, AUTOMATED 222 10^3/uL (150-450); RED BLOOD COUNT 4.81 10^6/uL (4.30-6.10); WHITE BLOOD COUNT 7.7 10^3/uL (4.0-10.0)
[2022-05-31 12:22] LABS: ALBUMIN 3.9 GM/DL (3.2-5.2); ALT/SGPT 26 U/L (12-78); BILIRUBIN,TOTAL 0.3 MG/DL (0.2-1.0); BLOOD UREA NITROGEN 22 MG/DL (7-18); CALCIUM LEVEL 9.5 MG/DL (8.8-10.2); CARBON DIOXIDE LEVEL 27 MEQ/L (21-32); CHLORIDE LEVEL 106 MEQ/L (98-107); CHOLESTEROL LEVEL 121 MG/DL (<200); CHOLESTEROL RISK RATIO 4.033 (<5); CREATININE FOR GFR 1.13 MG/DL (0.70-1.30); GLOMERULAR FILTRATION RATE > 60.0 (>42); GLUCOSE, FASTING 108 MG/DL (70-100); HDL CHOLESTEROL 30 MG/DL (>40); LDL CHOLESTEROL 54 MG/DL (<100); NON-HDL-C 91 MG/DL; NT-PRO BNP 186 PG/ML (<125); POTASSIUM SERUM 4.6 MEQ/L (3.5-5.1); SODIUM LEVEL 139 MEQ/L (136-145); TOTAL PROTEIN 7.1 GM/DL (6.4-8.2); TRIGLYCERIDES LEVEL 183 MG/DL (<150)
[2022-05-31 13:50] LABS: HEMOGLOBIN A1c 6.4 %
[2022-06-02 12:42] LABS: ALBUMIN 4.11 GM/DL (3.29-5.55); ALBUMIN % 57.9 % (55.8-66.1); ALPHA-1-GLOBULIN % 4.4 % (2.9-4.9); ALPHA-1-GLOBULINS 0.31 GM/DL (0.17-0.41); ALPHA-2-GLOBULINS 0.91 GM/DL (0.42-0.99); ALPHA-2-GLOBULINS % 12.8 % (7.1-11.8); BETA-1-GLOBULINS 0.47 GM/DL (0.28-0.60); BETA-1-GLOBULINS % 6.6 % (4.7-7.2); BETA-2-GLOBULINS 0.48 GM/DL (0.19-0.55); BETA-2-GLOBULINS % 6.7 % (3.2-6.5); GAMMA GLOBULIN % 11.6 % (11.1-18.8); GAMMA GLOBULINS 0.82 GM/DL (0.65-1.58)
== END ==
LOC: M PLALAB 08:28
PROVIDERS: ATTEND Family Medicine
DX: D47.2 Monoclonal gammopathy (principal); E11.8 Type 2 diabetes mellitus with unspecified complications; E78.2 Mixed hyperlipidemia
CPT/HCPCS: 36415; 80053; 80061; 83036; 83880; 84165; 85025; G0103

== ENCOUNTER → 2022-11-07 | Outpatient (CLI) | payer MEDICARE, OTHER ==
[2022-11-07 10:49] LABS: BASO # 0.1 10^3/uL (0.0-0.2); BASO % 0.8 % (0.0-1.0); EOS # 0.2 10^3/uL (0.0-0.5); EOS % 2.2 % (0.0-3.0); HEMATOCRIT 46.5 % (42.0-52.0); HEMOGLOBIN 15.7 g/dl (13.5-17.5); LYMPH # 1.2 10^3/uL (1.5-5.0); LYMPH % 15.7 % (24.0-44.0); MEAN CORPUSCULAR HEMOGLOBIN 31.1 pg (27.0-33.0); MEAN CORPUSCULAR HGB CONC 33.8 g/dl (32.0-36.5); MEAN CORPUSCULAR VOLUME 92.1 fl (80.0-96.0); MONO # 0.5 10^3/uL (0.0-0.8); MONO % 7.4 % (2.0-8.0); NEUTROPHILS # 5.4 10^3/uL (1.5-8.5); NEUTROPHILS % 73.5 % (36.0-66.0); PLATELET COUNT, AUTOMATED 197 10^3/uL (150-450); RED BLOOD COUNT 5.05 10^6/uL (4.30-6.10); WHITE BLOOD COUNT 7.3 10^3/uL (4.0-10.0)
[2022-11-07 11:16] LABS: CREATININE, URINE 71.7 MG/DL; MAU/CREAT RATIO 37.6 MCG/MG (0.0-30.0)
[2022-11-07 11:18] LABS: ALBUMIN 4.1 G/DL (3.2-5.2); ALKALINE PHOSPHATASE 57 U/L (46-116); ALT/SGPT 12 U/L (7.0-40); AST/SGOT 23 U/L (<34); BILIRUBIN,TOTAL 0.4 MG/DL (0.3-1.2); BLOOD UREA NITROGEN 20 MG/DL (9-23); CALCIUM LEVEL 9.7 MG/DL (8.3-10.6); CARBON DIOXIDE LEVEL 27 MMOL/L (20-31); CHLORIDE LEVEL 106 MMOL/L (98-107); CREATININE FOR GFR 1.02 MG/DL (0.70-1.30); GLOMERULAR FILTRATION RATE > 60.0 (>42); GLUCOSE, FASTING 140 MG/DL (74-106); POTASSIUM SERUM 4.9 MMOL/L (3.5-5.1); PTH INTACT 38.3 PG/ML (18.5-88.0); SODIUM LEVEL 142 MMOL/L (136-145); TOTAL PROTEIN 7.4 G/DL (5.7-8.2)
[2022-11-07 11:20] LABS: FERRITIN 58.6 NG/ML (10.5-307.3); TOTAL 25(OH) VITAMIN D 34.5 NG/ML (20.0-100.0)
[2022-11-09 05:08] LABS: FREE KAPPA LIGHT CHAINS SERUM 25.5 mg/L (3.3-19.4); FREE LAMBDA LIGHT CHAINS SERUM 38.2 mg/L (5.7-26.3); KAPPA/LAMBDA RATIO SERUM 0.67 (0.26-1.65)
== END ==
LOC: M PLALAB 08:03
PROVIDERS: ATTEND Family Medicine
DX: E55.9 Vitamin D deficiency, unspecified (principal); D47.2 Monoclonal gammopathy; E11.8 Type 2 diabetes mellitus with unspecified complications; Z79.899 Other long term (current) drug therapy

== ENCOUNTER → 2023-04-10 | Outpatient (CLI) | payer MEDICARE, OTHER | LOC: M RAD 13:35 | PROVIDERS: ATTEND Surgery Vascular Surgery | DX: I65.23 Occlusion and stenosis of bilateral carotid arteries (principal) ==

== ENCOUNTER → 2023-04-18 | Outpatient (CLI) | payer MEDICARE, OTHER ==
[2023-04-18 10:38] LABS: BASO % 0.4 % (0.0-1.0); EOS # 0.2 10^3/uL (0.0-0.5); HEMATOCRIT 43.2 % (42.0-52.0); HEMOGLOBIN 14.5 g/dl (13.5-17.5); LYMPH # 1.1 10^3/uL (1.5-5.0); LYMPH % 16.2 % (24.0-44.0); MEAN CORPUSCULAR HEMOGLOBIN 30.7 pg (27.0-33.0); MEAN CORPUSCULAR HGB CONC 33.6 g/dl (32.0-36.5); MEAN CORPUSCULAR VOLUME 91.3 fl (80.0-96.0); MONO # 0.5 10^3/uL (0.0-0.8); MONO % 7.9 % (2.0-8.0); NEUTROPHILS # 4.9 10^3/uL (1.5-8.5); NEUTROPHILS % 72.1 % (36.0-66.0); PLATELET COUNT, AUTOMATED 176 10^3/uL (150-450); RED BLOOD COUNT 4.73 10^6/uL (4.30-6.10); WHITE BLOOD COUNT 6.7 10^3/uL (4.0-10.0)
[2023-04-18 10:45] LABS: CHOLESTEROL RISK RATIO 4.03 (<5); HDL CHOLESTEROL 30.7 MG/DL (>40); IMMUNOGLOBULIN A 276.2 MG/DL (40-350); LDL CHOLESTEROL 60.9 MG/DL (<100); NON-HDL-C 93.3 MG/DL
[2023-04-18 10:46] LABS: IMMUNOGLOBULIN M 145.9 MG/DL (50-300)
== END ==
LOC: M PLALAB 08:16
PROVIDERS: ATTEND Family Medicine
DX: D47.2 Monoclonal gammopathy (principal); E11.8 Type 2 diabetes mellitus with unspecified complications; Z12.5 Encounter for screening for malignant neoplasm of prostate
CPT/HCPCS: 36415; 80061; 82784; 83036; 84155; 84165; 85025; G0103

== ENCOUNTER → 2023-04-23 | Outpatient (REF) | payer MEDICARE, OTHER | LOC: M SFHCPLAZ 13:56 | PROVIDERS: ATTEND Family Medicine | DX: D47.2 Monoclonal gammopathy (principal); E55.9 Vitamin D deficiency, unspecified; E11.8 Type 2 diabetes mellitus with unspecified complications ==

== ENCOUNTER → 2023-09-04 | Outpatient (CLI) | payer MEDICARE, OTHER ==
[2023-09-04 10:46] LABS: BASO % 0.6 % (0.0-1.0); EOS # 0.1 10^3/uL (0.0-0.5); EOS % 1.3 % (0.0-3.0); HEMATOCRIT 43.8 % (42.0-52.0); HEMOGLOBIN 14.7 g/dl (13.5-17.5); LYMPH # 1.3 10^3/uL (1.5-5.0); LYMPH % 18.7 % (24.0-44.0); MEAN CORPUSCULAR HEMOGLOBIN 30.6 pg (27.0-33.0); MEAN CORPUSCULAR HGB CONC 33.6 g/dl (32.0-36.5); MEAN CORPUSCULAR VOLUME 91.1 fl (80.0-96.0); MONO # 0.5 10^3/uL (0.0-0.8); MONO % 7.9 % (2.0-8.0); NEUTROPHILS # 4.8 10^3/uL (1.5-8.5); NEUTROPHILS % 71.4 % (36.0-66.0); PLATELET COUNT, AUTOMATED 218 10^3/uL (150-450); RED BLOOD COUNT 4.81 10^6/uL (4.30-6.10); WHITE BLOOD COUNT 6.7 10^3/uL (4.0-10.0)
[2023-09-04 11:13] LABS: CREATININE, URINE 90.6 MG/DL; MAU/CREAT RATIO 14.3 MCG/MG (0.0-30.0)
[2023-09-04 11:14] LABS: ALKALINE PHOSPHATASE 60 U/L (46-116); ALT/SGPT 17 U/L (7.0-40); AST/SGOT 18 U/L (<34); BILIRUBIN,TOTAL 0.5 MG/DL (0.3-1.2); BLOOD UREA NITROGEN 17 MG/DL (9-23); CALCIUM LEVEL 9.8 MG/DL (8.3-10.6); CARBON DIOXIDE LEVEL 27 MMOL/L (20-31); CHLORIDE LEVEL 103 MMOL/L (98-107); CREATININE FOR GFR 0.94 MG/DL (0.70-1.30); GLOMERULAR FILTRATION RATE > 60.0 (>42); GLUCOSE, FASTING 105 MG/DL (74-106); POTASSIUM SERUM 4.6 MMOL/L (3.5-5.1); PTH INTACT 40.1 PG/ML (18.5-88.0); SODIUM LEVEL 139 MMOL/L (136-145)
[2023-09-04 11:16] LABS: TOTAL 25(OH) VITAMIN D 34.7 NG/ML (20.0-100.0)
[2023-09-04 11:27] LABS: HEMOGLOBIN A1c 6.8 % (4.0-6.0)
[2023-09-06 07:07] LABS: FREE KAPPA LIGHT CHAINS SERUM 24.4 mg/L (3.3-19.4); FREE LAMBDA LIGHT CHAINS SERUM 35.3 mg/L (5.7-26.3); KAPPA/LAMBDA RATIO SERUM 0.69 (0.26-1.65)
== END ==
LOC: M PLALAB 08:23
PROVIDERS: ATTEND Family Medicine
DX: D47.2 Monoclonal gammopathy (principal); E55.9 Vitamin D deficiency, unspecified; E11.8 Type 2 diabetes mellitus with unspecified complications

== ENCOUNTER → 2023-09-11 | Outpatient (REF) | payer MEDICARE, OTHER | LOC: M SFHCPLAZ 12:44 | PROVIDERS: ATTEND Family Medicine | DX: E11.8 Type 2 diabetes mellitus with unspecified complications (principal); E53.8 Deficiency of other specified B group vitamins; Z12.5 Encounter for screening for malignant neoplasm of prostate ==

== ENCOUNTER → 2024-01-14 | Outpatient (CLI) | payer MEDICARE, OTHER ==
[2024-01-14 11:49] LABS: ALBUMIN 4.2 G/DL (3.2-5.2); ALKALINE PHOSPHATASE 53 U/L (46-116); ALT/SGPT 17 U/L (7.0-40); AST/SGOT 16 U/L (<34); BILIRUBIN,TOTAL 0.5 MG/DL (0.3-1.2); BLOOD UREA NITROGEN 20 MG/DL (9-23); CALCIUM LEVEL 9.3 MG/DL (8.3-10.6); CARBON DIOXIDE LEVEL 27 MMOL/L (20-31); CHLORIDE LEVEL 109 MMOL/L (98-107); CHOLESTEROL LEVEL 118 MG/DL (<200); CHOLESTEROL RISK RATIO 4.02 (<5); CREATININE FOR GFR 1.03 MG/DL (0.70-1.30); GLOMERULAR FILTRATION RATE > 60.0 (>42); GLUCOSE, FASTING 172 MG/DL (74-106); HDL CHOLESTEROL 29.3 MG/DL (>40); LDL CHOLESTEROL 45.7 MG/DL (<100); NON-HDL-C 88.7 MG/DL; POTASSIUM SERUM 4.6 MMOL/L (3.5-5.1); PSA SCREENING 1.09 NG/ML (< 4.00); SODIUM LEVEL 141 MMOL/L (136-145); TOTAL PROTEIN 7.2 G/DL (5.7-8.2); TRIGLYCERIDES LEVEL 215 MG/DL (<150)
[2024-01-14 11:54] LABS: FERRITIN 77.3 NG/ML (10.5-307.3)
[2024-01-14 11:56] LABS: VITAMIN B12 LEVEL 392 PG/ML (211-911)
[2024-01-14 12:02] LABS: BASO # 0.1 10^3/uL (0.0-0.2); BASO % 0.7 % (0.0-1.0); EOS # 0.2 10^3/uL (0.0-0.5); EOS % 3.3 % (0.0-3.0); HEMATOCRIT 46.7 % (42.0-52.0); HEMOGLOBIN 15.6 g/dl (13.5-17.5); LYMPH # 1.2 10^3/uL (1.5-5.0); LYMPH % 16.8 % (24.0-44.0); MEAN CORPUSCULAR HEMOGLOBIN 30.8 pg (27.0-33.0); MEAN CORPUSCULAR HGB CONC 33.4 g/dl (32.0-36.5); MEAN CORPUSCULAR VOLUME 92.3 fl (80.0-96.0); MONO # 0.6 10^3/uL (0.0-0.8); MONO % 7.8 % (2.0-8.0); NEUTROPHILS # 5.2 10^3/uL (1.5-8.5); NEUTROPHILS % 71.1 % (36.0-66.0); PLATELET COUNT, AUTOMATED 180 10^3/uL (150-450); RED BLOOD COUNT 5.06 10^6/uL (4.30-6.10); WHITE BLOOD COUNT 7.3 10^3/uL (4.0-10.0)
[2024-01-14 12:26] LABS: HEMOGLOBIN A1c 8.1 % (4.0-6.0)
== END ==
LOC: M PLALAB 08:07
PROVIDERS: ATTEND Family Medicine
DX: E11.8 Type 2 diabetes mellitus with unspecified complications (principal); E53.8 Deficiency of other specified B group vitamins; Z12.5 Encounter for screening for malignant neoplasm of prostate
CPT/HCPCS: 36415; 80053; 80061; 82607; 82728; 83036; 83525; 85025; G0103

== ENCOUNTER → 2024-01-15 | Outpatient (REF) | payer MEDICARE, OTHER | LOC: M SFHCPLAZ 13:26 | PROVIDERS: ATTEND Family Medicine | DX: E11.8 Type 2 diabetes mellitus with unspecified complications (principal); E53.8 Deficiency of other specified B group vitamins; I50.32 Chronic diastolic (congestive) heart failure; D47.2 Monoclonal gammopathy ==

== ENCOUNTER → 2024-06-30 | Outpatient (CLI) | payer MEDICARE, OTHER ==
[~2024-06-30] MED LIST changes: -ROSU40TA4 PO; +ROSU40TA63 PO
[2024-06-30 10:45] LABS: BASO % 0.6 % (0.0-1.0); EOS # 0.3 10^3/uL (0.0-0.5); EOS % 3.9 % (0.0-3.0); HEMATOCRIT 43.3 % (42.0-52.0); HEMOGLOBIN 14.7 g/dl (13.5-17.5); LYMPH # 1.1 10^3/uL (1.5-5.0); LYMPH % 16.2 % (24.0-44.0); MEAN CORPUSCULAR HEMOGLOBIN 31.3 pg (27.0-33.0); MEAN CORPUSCULAR HGB CONC 33.9 g/dl (32.0-36.5); MEAN CORPUSCULAR VOLUME 92.1 fl (80.0-96.0); MONO # 0.5 10^3/uL (0.0-0.8); MONO % 8.1 % (2.0-8.0); NEUTROPHILS # 4.7 10^3/uL (1.5-8.5); NEUTROPHILS % 70.9 % (36.0-66.0); PLATELET COUNT, AUTOMATED 181 10^3/uL (150-450); WHITE BLOOD COUNT 6.7 10^3/uL (4.0-10.0)
[2024-06-30 11:06] LABS: TOTAL PROTEIN,RANDOM URINE 8.6 MG/DL (0.0-14.0)
[2024-06-30 11:12] LABS: ALBUMIN 4.2 G/DL (3.2-5.2); ALKALINE PHOSPHATASE 62 U/L (46-116); ALT/SGPT 17 U/L (7.0-40); AST/SGOT 14 U/L (<34); BILIRUBIN,TOTAL 0.4 MG/DL (0.3-1.2); BLOOD UREA NITROGEN 20 MG/DL (9-23); CARBON DIOXIDE LEVEL 29 MMOL/L (20-31); CHLORIDE LEVEL 108 MMOL/L (98-107); CREATININE FOR GFR 0.94 MG/DL (0.70-1.30); CREATININE,RANDOM URINE 50.4 MG/DL; GLOMERULAR FILTRATION RATE > 60.0 (>42); GLUCOSE, FASTING 182 MG/DL (74-106); POTASSIUM SERUM 4.7 MMOL/L (3.5-5.1); SODIUM LEVEL 138 MMOL/L (136-145); TOTAL PROTEIN 7.3 G/DL (5.7-8.2)
[2024-06-30 11:13] LABS: FERRITIN 70.5 NG/ML (10.5-307.3)
[2024-06-30 11:14] LABS: VITAMIN B12 LEVEL 634 PG/ML (211-911)
[2024-06-30 11:15] LABS: HEMOGLOBIN A1c 7.9 % (4.0-6.0)
[2024-07-01 16:17] LABS: PROTEIN, TOTAL SO 7.1 g/dL (6.1-8.1)
== END ==
LOC: M PLALAB 08:24
PROVIDERS: ATTEND Family Medicine
DX: I50.32 Chronic diastolic (congestive) heart failure (principal)

== ENCOUNTER → 2024-07-03 | Outpatient (REF) | payer MEDICARE, OTHER ==
[~2024-07-03] MED LIST changes: -ROSU40TA63 PO; +ROSU40TA81 PO
== END ==
LOC: M SFHCPLAZ 10:33
PROVIDERS: ATTEND Family Medicine
DX: E11.8 Type 2 diabetes mellitus with unspecified complications (principal); E53.8 Deficiency of other specified B group vitamins; I50.32 Chronic diastolic (congestive) heart failure; D47.2 Monoclonal gammopathy; Z12.5 Encounter for screening for malignant neoplasm of prostate; K74.00 Hepatic fibrosis, unspecified

== ENCOUNTER → 2024-07-15 | Outpatient (REF) | payer MEDICARE, OTHER | LOC: M SFHCPLAZ 19:21 | PROVIDERS: ATTEND Family Medicine | DX: Z12.5 Encounter for screening for malignant neoplasm of prostate (principal); E11.8 Type 2 diabetes mellitus with unspecified complications; E53.8 Deficiency of other specified B group vitamins; I50.32 Chronic diastolic (congestive) heart failure; D47.2 Monoclonal gammopathy; K74.00 Hepatic fibrosis, unspecified; Z53.8 Procedure and treatment not carried out for other reasons ==

== ENCOUNTER → 2024-10-31 | Outpatient (CLI) | payer MEDICARE, OTHER ==
[2024-10-31 10:28] LABS: ALBUMIN 3.9 G/DL (3.2-5.2); ALKALINE PHOSPHATASE 53 U/L (40-129); ALT/SGPT 19 U/L (7.0-40); AST/SGOT 15 U/L (<34); BILIRUBIN,TOTAL 0.4 MG/DL (0.3-1.2); BLOOD UREA NITROGEN 19 MG/DL (9-23); CARBON DIOXIDE LEVEL 26 MMOL/L (20-31); CHLORIDE LEVEL 108 MMOL/L (98-107); CREATININE FOR GFR 0.86 MG/DL (0.70-1.30); GLOMERULAR FILTRATION RATE > 60.0 (>42); GLUCOSE, FASTING 160 MG/DL (74-106); POTASSIUM SERUM 4.3 MMOL/L (3.5-5.1); PSA SCREENING 1.19 NG/ML (< 4.00); SODIUM LEVEL 143 MMOL/L (136-145); TOTAL PROTEIN 7.4 G/DL (5.7-8.2)
[2024-10-31 10:30] LABS: BASO % 0.5 % (0.0-1.0); EOS # 0.2 10^3/uL (0.0-0.5); EOS % 3.2 % (0.0-3.0); HEMATOCRIT 44.9 % (42.0-52.0); LYMPH # 1.1 10^3/uL (1.5-5.0); LYMPH % 14.5 % (24.0-44.0); MEAN CORPUSCULAR HEMOGLOBIN 30.7 pg (27.0-33.0); MEAN CORPUSCULAR HGB CONC 33.4 g/dl (32.0-36.5); MEAN CORPUSCULAR VOLUME 91.8 fl (80.0-96.0); MONO # 0.5 10^3/uL (0.0-0.8); NEUTROPHILS # 5.6 10^3/uL (1.5-8.5); NEUTROPHILS % 75.4 % (36.0-66.0); PLATELET COUNT, AUTOMATED 178 10^3/uL (150-450); RED BLOOD COUNT 4.89 10^6/uL (4.30-6.10); WHITE BLOOD COUNT 7.5 10^3/uL (4.0-10.0)
[2024-10-31 10:30] LABS: FERRITIN 54.6 NG/ML (10.5-307.3)
[2024-10-31 10:47] LABS: HEMOGLOBIN A1c 7.6 % (4.0-6.0)
[2024-11-01 06:01] LABS: PROTEIN, TOTAL SO 7.1 g/dL (6.1-8.1)
[2024-11-03 09:33] LABS: INSULIN LEVEL 17.6 uIU/mL (<=18.4)
[2024-11-04 08:28] LABS: ALBUMIN SO 4.3 g/dL (3.8-4.8); ALPHA 1 GLOBULINS SO 0.3 g/dL (0.2-0.3); ALPHA 2 GLOBULINS SO 0.7 g/dL (0.5-0.9); BETA 2 GLOBULIN SO 0.5 g/dL (0.2-0.5); BETA GLOBULIN SO 0.5 g/dL (0.4-0.6); GAMMA GLOBULINS SO 0.8 g/dL (0.8-1.7)
[2024-11-07 01:47] LABS: ALPHA 2-MACROGLOBULINS,QN 222 mg/dL (106-279); ALT (SGPT) P5P 16 U/L (9-46); APOLIPOPROTEIN A-1 129 mg/dL (94-176); BILIRUBIN, TOTAL 0.4 mg/dL (0.2-1.2); FIBROSIS SCORE 0.27; FIBROSIS STAGE NO FIBROSIS (F0); GGT 12 U/L (3-70); HAPTOGLOBIN 197 mg/dL (43-212); NECROINFLAM ACT GRADE NO ACTIVITY (A0); NECROINFLAM ACT SCORE 0.05
== END ==
LOC: M PLALAB 08:03
PROVIDERS: ATTEND Family Medicine
DX: E53.8 Deficiency of other specified B group vitamins (principal); E11.8 Type 2 diabetes mellitus with unspecified complications; I50.32 Chronic diastolic (congestive) heart failure; D47.2 Monoclonal gammopathy; Z12.5 Encounter for screening for malignant neoplasm of prostate; K74.00 Hepatic fibrosis, unspecified
CPT/HCPCS: 36415; 80053; 81596; 82105; 82728; 83036; 83525; 83880; 84155; 84165; 85025; G0103

== ENCOUNTER → 2025-03-10 | Outpatient (CLI) | payer MEDICARE, OTHER | LOC: M PLAIMG 10:25 | PROVIDERS: ATTEND Physician Assistant | DX: I77.810 Thoracic aortic ectasia (principal); I35.8 Other nonrheumatic aortic valve disorders ==

== ENCOUNTER 2025-05-20 10:24 | Day surgery (SDC) | payer MEDICARE, OTHER ==
[~2025-05-20] VITALS: Ht 182.9 cm; Wt 99.3 kg
[~2025-05-20 10:24] MED LIST changes: +PRES10CA2 PO
[2025-05-20] MEDS ORDERED: LIDOCAINE 2% 100 MG/5 ML SDV (FOR ANES.) As Ordered ONE (11:07)
[2025-05-20 11:46] VITALS: TEMP 97.6
[2025-05-20 12:02] VITALS: BP 108/53; O2SAT 93
== END 2025-05-20 12:15 | disposition home or self-care (01) ==
LOC: M OPP 10:24
PROVIDERS: ATTEND Internal Medicine Gastroenterology
DX: Z12.11 Encounter for screening for malignant neoplasm of colon (principal); K57.30 Diverticulosis of large intestine without perforation or abscess without bleeding; K64.0 First degree hemorrhoids; Z80.0 Family history of malignant neoplasm of digestive organs; K22.89 Other specified disease of esophagus; K31.89 Other diseases of stomach and duodenum; R12 Heartburn; Z86.73 Personal history of transient ischemic attack (TIA), and cerebral infarction without residual deficits; Z88.8 Allergy status to other drugs, medicaments and biological substances; Z79.82 Long term (current) use of aspirin; Z79.84 Long term (current) use of oral hypoglycemic drugs; Z79.85 Long-term (current) use of injectable non-insulin antidiabetic drugs; Z79.899 Other long term (current) drug therapy; Z87.891 Personal history of nicotine dependence
CPT/HCPCS: 43239; 88305; G0105; J3010

== ENCOUNTER → 2025-08-27 | Outpatient (CLI) | payer MEDICARE, OTHER ==
[2025-08-27 11:32] LABS: BASO # 0.0 10^3/uL (0.0-0.2); BASO % 0.5 % (0.0-1.0); EOS # 0.2 10^3/uL (0.0-0.5); EOS % 3.8 % (0.0-3.0); LYMPH # 1.1 10^3/uL (1.5-5.0); LYMPH % 18.0 % (24.0-44.0); MONO # 0.5 10^3/uL (0.0-0.8); MONO % 7.6 % (2.0-8.0); NEUTROPHILS # 4.2 10^3/uL (1.5-8.5); NEUTROPHILS % 69.9 % (36.0-66.0); PLATELET COUNT, AUTOMATED 180 10^3/uL (150-450)
[2025-08-27 11:38] LABS: ALT/SGPT 19.0 U/L (7.0-40); AST/SGOT 21.0 U/L (<34); CALCIUM LEVEL 10.1 MG/DL (8.3-10.6); CARBON DIOXIDE LEVEL 27.0 MMOL/L (20-31); CHLORIDE LEVEL 108.0 MMOL/L (98-107); CREATININE FOR GFR 1.07 MG/DL (0.70-1.30); GLOMERULAR FILTRATION RATE 72.8 (>42); POTASSIUM SERUM 4.7 MMOL/L (3.5-5.1); SODIUM LEVEL 147.0 MMOL/L (136-145)
[2025-08-27 11:42] LABS: PSA SCREENING 1.69 NG/ML (< 4.00)
[2025-08-27 11:46] LABS: FREE T4 1.0 NG/DL (0.89-1.76)
[2025-08-27 12:20] LABS: ESTIMATED AVERAGE GLUCOSE 163.0 MG/DL (60-110)
[2025-08-28 16:51] LABS: PROTEIN, TOTAL SO 7.3 g/dL (6.1-8.1)
[2025-08-31 09:13] LABS: INSULIN LEVEL 7.4 uIU/mL (<=18.4)
[2025-09-01 10:02] LABS: ALBUMIN SO 4.5 g/dL (3.8-4.8); ALPHA 1 GLOBULINS SO 0.3 g/dL (0.2-0.3); ALPHA 2 GLOBULINS SO 0.7 g/dL (0.5-0.9); BETA 2 GLOBULIN SO 0.5 g/dL (0.2-0.5); BETA GLOBULIN SO 0.5 g/dL (0.4-0.6); GAMMA GLOBULINS SO 0.8 g/dL (0.8-1.7)
[2025-09-02 20:18] LABS: ENHANCED LIVER FIBROSIS SCORE 8.94 (<9.80)
== END ==
LOC: M PLALAB 07:24
PROVIDERS: ATTEND Family Medicine
DX: E53.8 Deficiency of other specified B group vitamins (principal); E11.8 Type 2 diabetes mellitus with unspecified complications; E78.2 Mixed hyperlipidemia; Z12.5 Encounter for screening for malignant neoplasm of prostate; I50.32 Chronic diastolic (congestive) heart failure; D47.2 Monoclonal gammopathy; K74.00 Hepatic fibrosis, unspecified
CPT/HCPCS: 36415; 80053; 81517; 82728; 83036; 83525; 83880; 84155; 84165; 84439; 84443; 85025; G0103